=== PATIENT | female | born 1995 | race Caucasian/White ===

== ENCOUNTER 2023-06-09 08:16 | Outpatient (CLI) | payer OTHER, SELFPAY ==
--- NOTE | ~2023-06-09 | US_ITS ---
EXAMINATION: US OB transvaginal DATE: 06/09/2023 08:46 INDICATION: Assess viability TECHNIQUE: Real-time transvaginal obstetric ultrasound. FINDINGS: No prior studies for comparison. The uterus measures 8.1 x 4.1 x 5.1 cm. There is an intrauterine gestational sac, with pole melania ntified. The crown rump length measures 0.94 cm, which correlates with a estimated gestational age o f 7 weeks 0 days. heart tones are identified measuring 132 bpm. There are bilateral ovarian c ysts, largest on the right measuring 4.2 cm. IMPRESSION: 1. SL IUP with an EGA of 7 weeks, 0 days (EDC by current ultrasound of 01/26/2024). 2: Bilateral simple ovarian cysts, largest on the right ovary measuring 4.2 cm. Reviewed, dictated and finalized at location B. ENTION PLANNER IMPRESSION: 1. SL IUP with an EGA of 7 weeks, 0 days (EDC by current ultrasound of ). 2: Bilateral simple ovarian cysts, largest on the right ovary measuring 4.2 cm .
== END 2023-06-09 08:17 ==
LOC: MICIMG 08:20
PROVIDERS: PCP Obstetrics & Gynecology Gynecology; Visit Provider Obstetrics & Gynecology Gynecology
DX: N83.292 Other ovarian cyst, left side (principal); N83.291 Other ovarian cyst, right side; Z3A.01 Less than 8 weeks gestation of pregnancy; O09.811 Supervision of pregnancy resulting from assisted reproductive technology, first trimester
CPT/HCPCS: 76817

== ENCOUNTER 2024-01-03 09:45 | Observation (INO) | payer OTHER, SELFPAY ==
[2024-01-03] VITALS (9 sets, daily range): BP systolic 116–150; BP diastolic 66–136; PULSE 59–116; BMI 40.2
--- NOTE | ~2024-01-03 | US_ITS ---
EXAMINATION: US venous doppler LE RT DATE: 01/03/2024 11:29 INDICATION: Right lower limb pain and swelling TECHNIQUE: Grayscale ultrasound images without and with compression and Doppler ultrasound images of the right lower extremity veins were obtained. COMPARISON: None. FINDINGS: The visualized portions of right common femoral vein, profunda (deep) femoral vein, femoral vein, pop liteal vein, posterior tibial veins, peroneal veins, gastrocnemius vein and greater saphenous vein ou tflow are patent. IMPRESSION: 1. No deep venous thrombosis in the right lower limb. Reviewed, dictated and finalized at location B.
--- NOTE | 2024-01-03 12:04 | PC.NURSE ---
1203: RN phoned CNM to inform her of ultrasound results, contraction pattern, vital signs, and category 1 tracing. Orders to discharge patient home with instructions on when to return to the hospital and instructions to rest, hydrate, and elevate her leg.
--- NOTE | 2024-01-03 12:12 | OBADM ---
This patient, Martha Duarte, admitted to the OB room OB Post 115 for observation. Patient/family oriented to hospital policies and general routines including ID bracelet, bed and alarms, visiting hours, pain management, procedures, bathroom and other care routines, personal items, smoking policy, room service/diet, and visiting hours. Patient/Family are encouraged to report perceived risks to care and to ask questions if they do not understand what they are told or what they should do.
--- NOTE | 2024-01-03 12:32 | PC.NURSE ---
1104: RN phoned CNM to inform her of patient's complaint of her right foot hurting. CNM aware that RN noted pitting edema on her right foot and the foot is sore to the touch but is an abnormal color or temperature. RN informed CNM of vital signs and FHT tracing. Orders to get lower extremity Doppler on the patient to rule out a DVT.
--- NOTE | 2024-01-12 11:14 | PM.OBTRLD ---
OB - Triage/Final Diagnosis Visit Information Date of evaluation: 01/03/24 Reason for evaluation: other (r/o DVT) Comments/Additional reasons for admission: I have assessed the risk for this patient, Martha Duarte, and determined that she would benefit from observation care. Evaluation Comments: Pt evaluated on unit by RN. Plan of care discussed with CNM. FHTs reassuring. VSS. No evidence of active labor or ROM. No evidence of DVT. Pt discharged home.
== END 2024-01-03 12:15 ==
PROVIDERS: Admitting Provider Obstetrics & Gynecology Gynecology; Visit Provider Obstetrics & Gynecology Gynecology
DX: O26.893 Other specified pregnancy related conditions, third trimester (principal); M79.89 Other specified soft tissue disorders; M79.604 Pain in right leg; Z3A.36 36 weeks gestation of pregnancy
CPT/HCPCS: 59025; 93971; G0378; G0379

== ENCOUNTER 2024-01-20 07:18 | Outpatient (RCR) | payer OTHER, SELFPAY ==
[2024-01-20 07:23] VITALS: BP 141/74; PULSE 67
== END 2024-02-22 13:31 | disposition home or self-care (01) ==
LOC: ANHOBOP 07:18
PROVIDERS: PCP Obstetrics & Gynecology Gynecology; Visit Provider Obstetrics & Gynecology Gynecology
DX: O36.8190 Decreased fetal movements, unspecified trimester, not applicable or unspecified (principal); Z3A.38 38 weeks gestation of pregnancy
CPT/HCPCS: 59025

== ENCOUNTER 2024-01-24 05:00 | Inpatient (IN) | payer OTHER, SELFPAY ==
[2024-01-24] VITALS (220 sets, daily range): BP systolic 111–170; BP diastolic 58–140; PULSE 52–161; TEMP 36.1–36.9; O2SAT 74–100; BMI 39.5
[2024-01-24 05:39] LABS: Basophils Percent Auto 0.4 % (0.2-1.2); Eosinophils Absolute Auto 0.2 K/mm3 (0-0.3); Eosinophils Percent Auto 2.3 % (0-4.4); Hematocrit 34.7 % (37.0-47.0); Hemoglobin 11.6 g/dL (12.0-15.0); Immature Granulocyte Absolute 0.07 K/mm3 (0.00-0.031); Immature Granulocyte Percent A 0.7 % (0-0.5); Lymphocytes Absolute Auto 2.37 K/mm3 (0.9-3.2); Lymphocytes Percent Auto 25.2 % (18.3-44.2); Mean Corpuscular HGB Conc 33.4 g/dl (32-36); Mean Corpuscular Hemoglobin 32.5 pg (26-34); Mean Corpuscular Volume 97.2 fl (80-100); Mean Platelet Volume 10.2 fl (7.4-10.4); Monocytes Absolute Auto 0.4 K/mm3 (0.1-0.6); Monocytes Percent Auto 4.5 % (2.6-8.5); Neutrophils Absolute Auto 6.3 K/mm3 (1.3-6.7); Neutrophils Percent Auto 66.9 % (45.5-73.1); Platelet Count Result 191 k/mm3 (150-375); Red Blood Count 3.57 M/mm3 (4.2-5.4); Red Cell Distribution Width 13.8 % (11.5-14.5); White Blood Count 9.4 K/mm3 (4.5-10.0)
--- NOTE | 2024-01-24 05:44 | LDADM ---
This patient, Martha Duarte, was admitted to Labor/Delivery/Recovery 105 on 01/24/24 at 05:00. Plans for labor, pain management and were discussed with patient. Patient/family oriented to hospital policies and general routines including ID bracelet, bed and alarms, visiting hours, pain management, procedures, bathroom and other care routines, personal items, smoking policy, room service/diet and guest tray routines, security routines, and visiting hours. Patient/Family are encouraged to report perceived risks to care and to ask questions if they do not understand what they are told or what they should do. See OBIX for further documentation.
[2024-01-24] MEDS: LACTATED RINGERS 1,000 ML 125 ML IV CONT ×3 (05:45→14:46)
[2024-01-24] MEDS: OXYTOCIN 30 UNITS/NS 500 ML 30 UNITS/500 ML BAG 6 UNITS IV CONT (06:13)
[2024-01-24 06:27] LABS: HIV 1/2 Ab P24 Ag Result Negative (Negative)
--- NOTE | 2024-01-24 07:41 | WPDOBADMIT ---
Obstetrics - Admit Note Admission Note: record reviewed. No pertinent additions to the history and/or any subsequent changes in the physical findings that are not consistent with the expected course of the were found. Additions to the history and/or subsequent changes in the physical findings follow. Pt presents for elective IOL at term.
--- NOTE | 2024-01-24 07:42 | PM.OBPNLAB ---
Pain Control Date/time seen: 01/24/24 07:25 Pain control: tolerating well Comments: feeling some cramping/back pain Pelvic Exam Dilation (cm): 2 Effacement (%): 60 station: -3 Amniotic membrane status: Intact Contractions Monitor mode: External Contraction pattern: Irregular Status status: Category l Assessment and Plan Pitocin rate (mU/min): 12 Assessment: induction ongoing Comments: CNM to bedside. Discussed plan of care and option for amniotomy. Discussed risks, benefits, and expectations of breaking water. Patient is agreeable. Amniotomy performed and there was a small return of clear amniotic fluid. Patient tolerated procedure well. Pitocin decreased to 6 ml/hr. Anticipate vaginal . Dr. Elise updated.
--- NOTE | 2024-01-24 09:34 | WPDANESEPP ---
Anes - Eval Pre Procedure Procedure: labor epidural Date/Time: 01/24/24 09:34 Surgeon: marissa Preop Diagnosis: Pain during labor Pre Op Diagnosis: IOL Patient Data Age: 28 Gender: F Height: 1.73 m Weight: 118 kg Last Vital Signs Temp 36.6 C 01/24/24 08:00 Pulse 73 01/24/24 09:31 BP 132/91 H 01/24/24 09:31 O2 Del Method Room Air 01/24/24 06:28 Allergies Allergy/AdvReac Type Severity Reaction Status Date / Time No Known Allergies Allergy Verified 01/12/24 12:34 Laboratory Tests 01/24/24 05:26 WBC 9.4 K/mm3 (4.5-10.0) RBC 3.57 L M/mm3 (4.2-5.4) Hgb 11.6 L g/dL (12.0-15.0) Hct 34.7 L % (37.0-47.0) MCV 97.2 fl (80-100) MCH 32.5 pg (26-34) MCHC 33.4 g/dl (32-36) RDW 13.8 % (11.5-14.5) Plt Count 191 k/mm3 (150-375) MPV 10.2 fl (7.4-10.4) Immature Gran % (Auto) 0.7 H % (0-0.5) Neut % (Auto) 66.9 % (45.5-73.1) Lymph % (Auto) 25.2 % (18.3-44.2) [place] % (Auto) 4.5 % (2.6-8.5) Eos % (Auto) 2.3 % (0-4.4) Baso % (Auto) 0.4 % (0.2-1.2) Lymph # (Auto) 2.37 K/mm3 (0.9-3.2) [place] # (Auto) 0.4 K/mm3 (0.1-0.6) Eos # (Auto) 0.2 K/mm3 (0-0.3) Baso # (Auto) 0.0 K/mm3 (0.0-0.1) Abs Immat Gran (auto) 0.07 H K/mm3 (0.00-0.031) Absolute Neuts (auto) 6.3 K/mm3 (1.3-6.7) Absolute Nucleated RBC 0.000 K/mm3 (0.0-0.012) Nucleated RBC % 0.0 % (0.0-0.2) RPR Pending HIV 1&2 Ab/P24 Ag 4thGn Negative (Negative) Blood Type B Positive Antibody Screen Negative Patient hx anesthesia problems: none Family hx anesthesia problems: none Results Review: All pre-operative results and documents have been reviewed as part of the pre-operative evaluation. [facility] Family History Family History Grandparent Heart disease Lung cancer Pancreatic cancer Colon cancer Father Neuropathy Social History Social History Smoking status: Never smoker Second hand tobacco smoke exposure: No Substance use: never Do You Feel Safe in your Home?: Yes Lack of Transportation: No Lack of Food: Never True Current Housing: I Have Housing Concerned About Future Housing: No Difficulty Paying Gas/Electric Bills: No Difficulty Paying for Meds: No Currently Unemployed: No Education: Bachelor's Degree Difficulty w/ Childcare or Family Care: No Spiritual care concerns: No Exam Day of Procedure 01/24/24 09:34 Patient weight: obese Heart: regular rate and rhythm Lungs: normal air movement Airway: Mallampati scale class II Neurological: alert and oriented
[2024-01-24 11:25] LABS: Rapid Plasma Reagin Non-Reactive (NonReactive)
--- NOTE | 2024-01-24 13:11 | PM.OBPNLAB ---
Pain Control Date/time seen: 01/24/24 13:11 Spoke with RN on telephone Pain control: tolerating well and epidural Contractions Monitor mode: Internal Contraction pattern: Irregular Status status: Category l Assessment and Plan Assessment: induction ongoing Plan: continuous present management Comments: FHTs Cat 1. Continue pitocin as needed to achieve adequate contraction pattern.
[2024-01-24] MEDS: ONDANSETRON INJ 4 MG/2 ML VIAL IV PUSH (17:06)
--- NOTE | 2024-01-24 17:38 | PM.OBPNLAB ---
Pain Control Date/time seen: 01/24/24 17:38 Pain control: epidural Pelvic Exam Dilation (cm): 9 Effacement (%): 100 station: 0 Amniotic membrane status: Ruptured Comments: per RN exam Contractions Monitor mode: External Contraction frequency: 2 (2-3.5) Contraction pattern: Regular Contraction intensity: Strong/Firm Status status: Category l Assessment and Plan Pitocin rate (mU/min): 7 Assessment: active labor Plan: continuous present management
--- NOTE | 2024-01-24 17:40 | PM.OBPRVD ---
OB - Vaginal Delivery Note Procedure Delivery date: 01/24/24 Induction method: Per Pitocin Protocol Delivery augmentation: Rupture of Membranes Delivery monitor: External FHT and External Uterine Route of delivery: Episiotomy description: None Laceration Description: Perineal - 2nd Degree and Labial Delivery repair: vicryl Specimen: No Quantitative Blood Loss (ml): 400 Anesthesia type: Epidural Disposition: Floor Complications: No immediate complications Narrative: Martha arrived for elective Induction of labor at term. She received Pitocin and amniotomy. Her cervix made steady change to complete dilation and she pushed very well with contractions. She delivered the head and there was excellent restitution observed. There was easy delivery of both anterior and posterior shoulders followed by the remainder of the infant. The was placed on the maternal abdomen and dried and stimulated by the nursery staff. After 1 minute of life, the cord was doubly clamped and cut. Cord blood, cord gases, and cord segment were obtained. The placenta delivered spontaneously it was examined found to be intact with marginal cord insertion noted. A second-degree laceration was repaired in usual fashion. Vaginal bleeding was moderate at this point. A straight catheter was inserted into the urethra using sterile technique and approximately 400 mL of clear yellow urine was returned. At this time, the vaginal bleeding slowed down to small. A superficial left labial laceration was noted to have continuous oozing and was repaired using 4-0 Vicryl on an FSH suture. After this there was excellent hemostasis. Uterine tone remained good. Of delivery counts correct. Mother and baby skin to skin in the delivery room [place] Baby Date of : 01/24/24 Time of : 20:51 Weeks of gestation at delivery: 39 gender: Male Weight (pounds): 0 (weight unavailable at this time.) presentation: vertex position: Left Occiput Anterior Placenta delivery description: Spontaneous and Other (marginal cord insertion) Cord Vessel Description: 3 Vessels and Delayed Cord Clamping score one minute: 9 score five minutes: 9
--- NOTE | 2024-01-24 17:41 | PM.OBDSVD ---
DS: Admitting Diagnosis Discharge Date 01/26/24 Admitting Diagnosis 28 y.o. at 39 weeks PCOS concieved using Femara HSV1 Hx Lap Luana in 2017 Fetus with EIF on Liver (Stable on US) DS: Discharge Diagnosis Discharge Diagnosis (1) (normal spontaneous vaginal delivery): Code(s): O80 - Encounter for full-term uncomplicated delivery Status: Acute (2) Mother currently breastfeeds: Status: Acute OB - DS: Summary Hospital Course Hospital Course: Uncomplicated OB Procedures : Ultrasound OB Procedures Intrapartum: Spontaneous Vag Delivery OB Procedures: : None Peripartum Data Infant Delivery Method: Natural Vaginal Laceration Description: Perineal - 2nd Degree and Labial Episiotomy description: None complications: none Status at Discharge Functional status at discharge: independent ambulation Overall status at discharge: patient is progressing back to baseline Time Spent with Patient Time attestation: Total time spent providing and/or coordinating discharge services: Exam Narrative: Alert and oriented. Mood is pleasant and cooperative. Perineum with minimal edema. Fundus firm and below umbilicus. Const: General: cooperative, healthy appearing, no acute distress and alert Orientation/consciousness: patient oriented x3 Limitations: no limitations Resp: Effort & Inspection: normal respiratory effort and able to speak in complete sentences Auscultation: clear to auscultation bilaterally Cardio: Rate: regular rate GI: Inspection: normal to inspection Auscultation: normal bowel sounds : General: Yes bladder normal to palpation External Female Exam: other (lochia WNL) Bimanual exam- vagina & uterus: bladder normal to palpation Other: Fundus firm and below U Skin: General skin exam: normal color and no rashes or lesions noted Neuro: General: patient oriented x3 and moves all extremities Cognition (Neuro): normal cognition Extrem: General: normal to inspection and no calf tenderness Psych: Appearance: grossly normal Mental Status: mental status grossly normal Affect: normal affect Thought process: Normal thought process present DS: Data Data Completed and Pending Labs on day of discharge: Labs from last 24 hours 01/24/24 05:26 WBC 9.4 RBC 3.57 L Hgb 11.6 L Hct 34.7 L MCV 97.2 MCH 32.5 MCHC 33.4 RDW 13.8 Plt Count 191 MPV 10.2 Immature Gran % (Auto) 0.7 H Neut % (Auto) 66.9 Lymph % (Auto) 25.2 [place] % (Auto) 4.5 Eos % (Auto) 2.3 Baso % (Auto) 0.4 Lymph # (Auto) 2.37 [place] # (Auto) 0.4 Eos # (Auto) 0.2 Baso # (Auto) 0.0 Abs Immat Gran (auto) 0.07 H Absolute Neuts (auto) 6.3 Absolute Nucleated RBC 0.000 Nucleated RBC % 0.0 RPR Non-reactive HIV 1&2 Ab/P24 Ag 4thGn Negative Blood Type B Positive Antibody Screen Negative Discharge Plan Discharge Attending physician on discharge: Deidre Elise Discharging Clinician: Diane Belcher Anticipated Discharge Date/Time: 01/26/24 10:00 Patient Disposition: Home, Self-Care Activity: may drive after 2 weeks and pelvic rest Diet: as tolerated Wound Care Instructions: follow printed instructions Discharge Instructions: Continue taking your vitamin and any other supplements as previously directed (Examples: Iron, Vitamin D). You may take Tylenol 1000mg over the counter every 6 hours as needed for pain. Do not exceed 4000mg of Tylenol daily. You may continue using tucks pads and dermoplast spray if needed for a few more days. Depression Notify provider for signs or symptoms. These may include- Feelings: Feeling anxious, angry, hopeless, guilt, or loss of interest/pleasure in activities you normally enjoy. Mood swings or panic attacks. General: Extreme fatigue, loss of your appetite, feeling restless. Crying excessively, irritability, insomnia Psycholo
[2024-01-24] MEDS: fentaNYL CITRATE INJ (*CRX) 100 MCG/2 ML VIAL 50 MCG IV PUSH (21:15)
[2024-01-24] MEDS: OXYTOCIN 30 UNITS/NS 500 ML 30 UNITS/500 ML BAG 125 UNITS IV CONT (21:18)
[2024-01-24] MEDS: WITCH HAZEL 40 PADS 1 PAD TOPICAL (23:21)
[2024-01-24] MEDS: BENZOCAINE 20% AER SPR (*SP) 56 GM CAN 1 SPRAY TOPICAL (23:22)
[2024-01-24] MEDS: IBUPROFEN 600 MG TABLET PO (23:22)
--- NOTE | 2024-01-24 23:57 | OBPPTRN ---
Patient transferred to post room #284 via wheelchair. Support person present. Oriented to unit, room, information board, rooming in, admission packet and security measures. Patient verbalizes understanding.
[2024-01-25] VITALS: BP 138/79; PULSE 74; RESP 18; TEMP 36.1; O2SAT 97
[2024-01-25 05:17] VITALS: BP 137/84; PULSE 74; RESP 18; TEMP 36; O2SAT 98
[2024-01-25] MEDS: IBUPROFEN 600 MG TABLET PO ×3 (05:29→19:14)
[2024-01-25 05:44] LABS: Hematocrit 31.9 % (37.0-47.0); Hemoglobin 10.6 g/dL (12.0-15.0)
[2024-01-25 07:35] VITALS: BP 132/83; PULSE 71; RESP 16; TEMP 36.8; O2SAT 100
--- NOTE | 2024-01-25 07:39 | PM.OBPNVD ---
OB - PN: Subj Subjective Date/time seen: 01/25/24 07:39 Interval history: Doing well. Urinating without difficulty. Denies passing any large clots. Denies dizziness with ambulating. Tolerating po food and fluids. Bonding with . Infant latched once but has been bottle feeding. Patient comments: pain well controlled baby status: doing well [place] feeding status: pumping and bottle feeding OB - PN: Obj Data Labs 01/25/24 05:39 Labs: Laboratory Results - last 24 hr 01/24/24 01/25/24 05:26 05:39 Hgb 10.6 L Hct 31.9 L RPR Non-reactive OB - PN A/P Time Spent With Patient Time: Total time spent is greater than 50% in coordination of care (as documented) at patient's floor/unit and/or counseling patient: Review of Systems Review of Systems: All systems reviewed & are unremarkable except as noted in HPI and below Exam Narrative: Alert and oriented. Mood is pleasant and cooperative. Perineum with minimal edema. Fundus firm and below umbilicus. Const: General: cooperative, healthy appearing, no acute distress and alert Orientation/consciousness: patient oriented x3 Limitations: no limitations Resp: Effort & Inspection: normal respiratory effort and able to speak in complete sentences Cardio: Rate: regular rate GI: Inspection: normal to inspection Auscultation: normal bowel sounds : General: Yes bladder normal to palpation External Female Exam: other (lochia WNL) Bimanual exam- vagina & uterus: bladder normal to palpation Other: Fundus firm and below U Skin: General skin exam: normal color and no rashes or lesions noted Neuro: General: patient oriented x3 and moves all extremities Cognition (Neuro): normal cognition Extrem: General: normal to inspection and no calf tenderness Psych: Appearance: grossly normal Mental Status: mental status grossly normal Affect: normal affect Thought process: Normal thought process present
[2024-01-25] MEDS: ACETAMINOPHEN 325 MG TABLET 650 MG PO ×2 (09:19→19:13)
[2024-01-25] MEDS: MULTIVIT/MIN/PREN/FOL AC/IRON TABLET 1 TAB PO (09:19)
[2024-01-25] MEDS: DOCUSATE SODIUM 100 MG CAPSULE PO (09:19)
[2024-01-25] MEDS: metFORMIN HCL XR 500 MG TAB.SR.24H PO (09:19)
--- NOTE | 2024-01-25 09:40 | PC.NURSE ---
1105- Received consult from Diane Belcher CNM for . She states patient needs a pump CLAUDETTE. She discussed hand expression with patient. Breast pump provided due to [patient request]. Patient feels like baby is eating from the bottle very well and is feeling like she wants to pump and bottle feed, rather than put baby to breast. Instructions given on cleaning, care, usage, that there should be no pain, pumping schedule for milk production, collection, and storage of human milk. Mother eating breakfast and will call for pump instructions when she is ready. 7043- Patient was assessed for correct placement, flange size (24mm), stimulation for adequate milk production every 3 hours (8 times in 24 hours) 1-2 times at night. Reviewed use of pumped milk and how to mix with a small amount of formula to ensure baby gets all drops. She denies any pain with pumping.?Mother voiced understanding of the education shared along with mom/baby guide. Reported to the Primary RN.
[2024-01-25 12:29] VITALS: BP 143/81; PULSE 72; RESP 16; TEMP 36.9; O2SAT 99
[2024-01-25 19:10] VITALS: BP 154/92; PULSE 91; RESP 18; TEMP 37
[2024-01-25 21:00] VITALS: BP 120/62
[2024-01-26 04:00] VITALS: BP 128/74; PULSE 88; RESP 18; TEMP 36.9
--- NOTE | 2024-01-26 07:40 | P.PNOB_ITS ---
OB - PN: Subj Subjective Date/time seen: 01/26/24 07:25 Interval history: Doing well. Urinating without difficulty. Denies passing any large clots. Denies dizziness with ambulating. Tolerating po food and fluids. Bonding with . Mostly bottle feeding formula. Patient comments: pain well controlled baby status: doing well feeding status: pumping and bottle feeding OB - PN: Obj Data Labs 01/25/24 05:39 OB - PN A/P Assessment and Plan (1) (normal spontaneous vaginal delivery): Code(s): O80 - Encounter for full-term uncomplicated delivery Status: Acute (2) Mother currently breastfeeds: Status: Acute Plan day: 2 Plan: discharge home Time Spent With Patient Time: Total time spent is greater than 50% in coordination of care (as documented) at patient's floor/unit and/or counseling patient: Review of Systems Review of Systems: All systems reviewed & are unremarkable except as noted in HPI and below Exam Narrative: Alert and oriented. Mood is pleasant and cooperative. Perineum with minimal edema. Fundus firm and below umbilicus. Const: General: cooperative, healthy appearing, no acute distress and alert Orientation/consciousness: patient oriented x3 Limitations: no limitations Resp: Effort & Inspection: normal respiratory effort and able to speak in complete sentences Auscultation: clear to auscultation bilaterally Cardio: Rate: regular rate GI: Inspection: normal to inspection Auscultation: normal bowel sounds : General: Yes bladder normal to palpation External Female Exam: other (lochia WNL) Bimanual exam- vagina & uterus: bladder normal to palpation Other: Fundus firm and below U Skin: General skin exam: normal color and no rashes or lesions noted Neuro: General: patient oriented x3 and moves all extremities Cognition (Neuro): normal cognition Extrem: General: normal to inspection and no calf tenderness Psych: Appearance: grossly normal Mental Status: mental status grossly n ormal Affect: normal affect Thought process: Normal thought process present
[2024-01-26 08:08] VITALS: BP 139/83; PULSE 68; RESP 20; TEMP 36.7; O2SAT 100
[2024-01-26] MEDS: metFORMIN HCL XR 500 MG TAB.SR.24H PO (08:31)
[2024-01-26] MEDS: DOCUSATE SODIUM 100 MG CAPSULE PO (08:31)
[2024-01-26] MEDS: IBUPROFEN 600 MG TABLET PO (08:31)
[2024-01-26] MEDS: MULTIVIT/MIN/PREN/FOL AC/IRON TABLET 1 TAB PO (08:31)
[2024-01-26] MEDS: ACETAMINOPHEN 325 MG TABLET 650 MG PO (08:31)
--- NOTE | 2024-01-26 14:41 | PC.NURSE ---
0840 RN provided instructions on cleaning, care, and usage of breast pump, that there should be no pain, pumping schedule for milk production, collection, and storage of human milk. Patient had already been assessed for correct placement, flange size, to pump for comfort and nipple stretching/stimulation for adequate milk production every 3 hours (8 times in 24 hours) 1-2 times at night. Parents are encouraged to record the pumping schedule on the feeding sheet.?Mother voiced understanding of the education shared along with mom/baby guide and the pump measurement, flange fit handout for additional resource information. Reported to the Primary RN.
[2024-01-27 11:08] VITALS: BP 140/86; PULSE 73; RESP 18; TEMP 36.9; O2SAT 99
== END 2024-01-26 10:15 | disposition home or self-care (01) | DRG 806 ==
LOC: ANHLDR 21:51 → ANHOB2 01-25 00:12
PROVIDERS: Advanced Practice Midwife; Admitting Provider Obstetrics & Gynecology Gynecology; PCP Obstetrics & Gynecology Gynecology; Visit Provider Obstetrics & Gynecology Gynecology
DX: O69.89X0 Labor and delivery complicated by other cord complications, not applicable or unspecified (principal); O98.52 Other viral diseases complicating childbirth; Z37.0 Single live birth; Z3A.39 39 weeks gestation of pregnancy; O70.1 Second degree perineal laceration during delivery; B00.9 Herpesviral infection, unspecified
CPT/HCPCS: 36415; 85014; 85018; 85025; 86592; 86703; 86850; 86900; 86901; A9270; G0432; J2405; J2590; J2795; J3010; J7120

== ENCOUNTER 2024-02-02 17:05 | Outpatient (CLI) | payer OTHER, SELFPAY ==
[2024-02-02] VITALS (11 sets, daily range): BP systolic 134–152; BP diastolic 80–95; PULSE 60–79
[2024-02-02 18:15] LABS: Basophils Percent Auto 0.5 % (0.2-1.2); Eosinophils Absolute Auto 0.2 K/mm3 (0-0.3); Eosinophils Percent Auto 2.3 % (0-4.4); Hematocrit 35.2 % (37.0-47.0); Hemoglobin 11.4 g/dL (12.0-15.0); Immature Granulocyte Absolute 0.05 K/mm3 (0.00-0.031); Immature Granulocyte Percent A 0.6 % (0-0.5); Lymphocytes Absolute Auto 2.76 K/mm3 (0.9-3.2); Lymphocytes Percent Auto 33.3 % (18.3-44.2); Mean Corpuscular HGB Conc 32.4 g/dl (32-36); Mean Corpuscular Hemoglobin 32.3 pg (26-34); Mean Corpuscular Volume 99.7 fl (80-100); Mean Platelet Volume 9.3 fl (7.4-10.4); Monocytes Absolute Auto 0.4 K/mm3 (0.1-0.6); Monocytes Percent Auto 4.8 % (2.6-8.5); Neutrophils Absolute Auto 4.9 K/mm3 (1.3-6.7); Neutrophils Percent Auto 58.5 % (45.5-73.1); Platelet Count Result 323 k/mm3 (150-375); Red Blood Count 3.53 M/mm3 (4.2-5.4); Red Cell Distribution Width 13.5 % (11.5-14.5); White Blood Count 8.3 K/mm3 (4.5-10.0)
[2024-02-02 18:28] LABS: Alanine Aminotransferase 28 U/L (6-35); Albumin Level 3.9 g/dL (3.5-5.1); Alkaline Phosphatase 96 U/L (38-126); Anion Gap 10 mmol/L (4-12); Aspartate Amino Transferase 35 U/L (14-36); Bilirubin,Total 0.4 mg/dL (0.2-1.3); Blood Urea Nitrogen 11 mg/dL (7-17); Carbon Dioxide 23 mmol/L (22-30); Chloride 102 mmol/L (98-107); Estimated Glomerular Filt Rate > 60; Glucose 83 mg/dL (65-110); Potassium 4.2 mmol/L (3.4-5.0); Sodium 135 mmol/L (137-145)
--- NOTE | 2024-02-02 18:35 | PC.NURSE ---
Norberto Belcher CNM informed of BP's, headache since last night, pt took 500 mg of Tylenol last night, 600 mg of Motrin at 0200, and 1000 mg of Tylenol at noon today. Discussed lab results. No visual disturbance, epigastric/RUQ pain. Minimal swelling in lower legs. Order received for Fioricet and discharge instructions if headache improves.
[2024-02-02] MEDS: ACETAMINOPHEN/BUTALBITAL/CAFFEINE 325-50-40 MG TABLET (FIORICET) 1 TAB PO (19:18)
--- NOTE | 2024-02-03 08:48 | PM.OBTRLD ---
OB - Triage/Final Diagnosis Visit Information Date of evaluation: 02/02/24 Reason for evaluation: other (Elevated BPs at home. ) Comments/Additional reasons for admission: I have assessed the risk for this patient, Martha Duarte, and determined that she would benefit from observation care. Evaluation Laboratory results: Laboratory Tests 02/02/24 17:45 WBC 8.3 RBC 3.53 L Hgb 11.4 L Hct 35.2 L MCV 99.7 MCH 32.3 MCHC 32.4 RDW 13.5 Plt Count 323 D MPV 9.3 Immature Gran % (Auto) 0.6 H Neut % (Auto) 58.5 Lymph % (Auto) 33.3 [place] % (Auto) 4.8 Eos % (Auto) 2.3 Baso % (Auto) 0.5 Lymph # (Auto) 2.76 [place] # (Auto) 0.4 Eos # (Auto) 0.2 Baso # (Auto) 0.0 Abs Immat Gran (auto) 0.05 H Absolute Neuts (auto) 4.9 Absolute Nucleated RBC 0.000 Nucleated RBC % 0.0 Sodium 135 L Potassium 4.2 Chloride 102 Carbon Dioxide 23 Anion Gap 10 BUN 11 Creatinine 0.70 Estim Creat Clear Calc Not Reportable Estimated GFR > 60 Glucose 83 Uric Acid 4.0 Calcium 9.0 Total Bilirubin 0.4 AST 35 ALT 28 Alkaline Phosphatase 96 Total Protein 7.0 Albumin 3.9 Vital signs: Vital Signs - 24 hr 02/02/24 17:38 02/02/24 17:38 02/02/24 17:38 Pulse Rate 79 79 Blood Pressure 146/88 H Blood Pressure [Left Arm] 146/88 H Oxygen Delivery Room Air 02/02/24 18:00 02/02/24 18:15 02/02/24 18:31 Pulse Rate 69 72 66 Blood Pressure 134/80 137/88 143/80 H Blood Pressure [Left Arm] Oxygen Delivery 02/02/24 18:45 02/02/24 19:00 02/02/24 19:15 Pulse Rate 60 60 61 Blood Pressure 149/90 H 143/88 H 152/89 H Blood Pressure [Left Arm] Oxygen Delivery 02/02/24 19:30 02/02/24 19:45 02/02/24 20:01 Pulse Rate 66 61 64 Blood Pressure 143/95 H 145/89 H 144/85 H Blood Pressure [Left Arm] Oxygen Delivery 02/02/24 20:15 Pulse Rate 60 Blood Pressure 139/84 Blood Pressure [Left Arm] Oxygen Delivery Comments: All BPs normal to mild range. Given Ibuprofen for headache. CBC, CMP, and Uric acid WNL. No evidence of preeclampsia. Plan for pt to check BP daily at home and call office with readings on 02/04/24. Plan for BP check in the office early next week.
== END 2024-02-02 20:35 | disposition home or self-care (01) ==
LOC: ANHOBOP 17:16 → ANHOBPP 17:16
PROVIDERS: Visit Provider Advanced Practice Midwife
DX: O13.9 Gestational [pregnancy-induced] hypertension without significant proteinuria, unspecified trimester (principal); Z3A.00 Weeks of gestation of pregnancy not specified
CPT/HCPCS: 36415; 80053; 84550; 85025; 99199; A9270

== ENCOUNTER 2024-09-25 17:42 | Emergency (ER) | payer OTHER, SELFPAY ==
--- NOTE | 2024-09-25 17:45 | ED.URI ---
HPI - URI/Sore Throat General Chief Complaint: Upper Respiratory Infection Stated Complaint: Cough Time Seen by Provider: 09/25/24 17:44 Source: patient Mode of arrival: ambulatory Limitations: no limitations History of Present Illness HPI Narrative: Martha is a a 28 year old female patient presenting to the clinic today with c/o cough, sinus congestion, and chest congestion x 2 weeks. She reports no known fevers, chills, body aches. Denies any shortness of breath or chest pain currently. She is 6 weeks . Spoke with her OBGYN and was sent here for evaluation. States she went to [facility] clinic on Wednesday and they prescribed her an albuterol inhaler MD elicited complaint: sore throat and nasal congestion Related Data Home Medications ?Medication ?Instructions ?Recorded ?Confirmed ?Last Taken ?Type acetaminophen 500 mg tablet 1,000 mg PO Q6H PRN Headache 02/02/24 09/25/24 02/02/24 12:00 History (Tylenol Extra Strength) Vitamin .Route DAILY 09/25/24 Unknown History albuterol sulfate 90 mcg/actuation 2 puff inhalation PRN shortness of 09/25/24 Unknown History aerosol inhaler breath or wheezing Allergies Allergy/AdvReac Type Severity Reaction Status Date / Time No Known Allergies Allergy Verified 09/25/24 17:48 Review of Systems Review of Systems: Pertinent positives per HPI. Patient denies any fever, chills, rash, headache, visual changes, dizziness,shortness of breath, chest pain, palpitations, nausea, vomiting, diarrhea, constipation, abdominal pain, or any urinary issues. [facility] Family History Family History Grandparent Heart disease Lung cancer Pancreatic cancer Colon cancer Father Neuropathy Social History Social History Smoking status: Never smoker Second hand tobacco smoke exposure: No Substance use: never Do You Feel Safe in your Home?: Yes Lack of Transportation: No Lack of Food: Never True Current Housing: I Have Housing Concerned About Future Housing: No Difficulty Paying Gas/Electric Bills: No Difficulty Paying for Meds: No Currently Unemployed: No Education: Bachelor's Degree Difficulty w/ Childcare or Family Care: No Spiritual care concerns: No Comments At the time of my signature, I reviewed and agree with the nursing past medical, surgical, social, and family history. There is no relevant family history pertinent to the patient complaint. Exam Narrative: General: Well-developed, well nourished, in no apparent distress Head: Normocephalic, atraumatic Eyes: Pupils equally round and reactive to light bilaterally, EOM intact, sclera and conjunctive clear, no discharge, lids normal Ears: TMs intact and clear, ear canals clear, no drainage, grossly hearing normal. Nose: Nares patent, yellow nasal discharge moderate inflammation, n maxillary and frontal sinus tenderness. Mouth: Oral pharynx red without lesions or masses, good dentition, MMM. Postnasal drip, blister-like painful lesions to the upper right lip Neck: Supple, trachea midline, no enlargement of anterior or posterior cervical nodes, no thyroid masses or goiter palpable. Cardio: Regular rate and rhythm, s1 and s2 normal, no murmur appreciated. Resp: Slightly diminished in the bases otherwise clear, no rhonchi, rales, wheezing or rubs Course Course Emergency Course: Portions of this record may have been created with voice recognition software. Level of Care: Express Care Visit Vital Signs Vital signs: Vital signs reviewed MDM - URI/Sore Throat MDM Narrative Medical decision making narrative: At the time of visit patient is resting comfortably on the exam table. Patient appears to be nontoxic. Plan: I suspect patient has rhinosinusitis. Prescription for Augmentin was sent to the pharmacy. Patient is also reporting some cold sores on her lips. He is requesting medication for this. Will send in acyclovir 5% cream. Supportive measures were discussed with the patient and they voiced understanding discharge instructions and agrees to treatment plan. Return precautions reviewed Differential Diagnosis Differential diagnosis: Likely upper respiratory infection, otitis media, sinusitis, viral infection, bronchitis, influenza, pharyngitis and other (COVID) Discharge Plan Discharge Clinical Impression: Acute bacterial rhinosinusitis, Cold sore Patient Disposition: Home, Self-Care Condition: Stable Instructions: Antibiotic Form, Rhinosinusitis (ED) Additional Instructions: Take prescription medications only as prescribed-Augmentin and acyclovir topical cream Increase fluids and stay well hydrated Tylenol for pain/fever Flonase and OTC antihistamines such as Claritin or Zyrtec as directed Vicks vapor rub to open sinuses Sinus rinses for congestion Cepacol spray, cough drops, throat lozenges, warm tea with honey/lemon, gargle salt water to soothe throat BRAT diet for diarrhea Clear liquids x 24 hours then advance as tolerated for nausea/vomiting Go to the ED if you develop a worsening in your condition- high fever not controlled by Tylenol or Motrin, dehydration, weakness, lethargy, shortness of breath, or chest pain. Follow up with your PCP in 3-5 days if symptoms persist. Approved Medications for Patients Cold and Flu Symptoms --Tylenol (regular or extra Strength) Fever (call if over 101?)--Tylenol (regular or extra Strength) Nasal Drainage/Head Congestion--Chlor-Trimeton, Sudafed, Tavist,Tylenol Sinus Cough--Robitussin, Delsym, Mucinex Sore Throat--Chloraseptic, Cepacol lozenges Allergy Symptoms--Benadryl, Zyrtec, Zyrtec D, Claritin, Claritin D Nausea--Emetrol, Vitamin B6 Tablets, Lupe, Lupe Tea, Preggie Pops, B- Suckers Constipation--Milk of Magnesia, Metamucil, Fiberall, Konsyl, Colace (Docusate Sodium) Diarrhea--Imodium, Kaopectate, Follow BRAT diet: bananas, rice, applesauce, tea/toast Heartburn--Maalox, Mylanta, TUMS, Prilosec OTC, Zantac, Tagament, Prevacid, Pepcid Hemorrhoids--Tucks Pads, Anusol, Preparation H, warm sitz baths Patient Language: Mongolian Prescriptions: New amoxicillin-pot clavulanate 875-125 mg tablet 1 tablet PO Q12H 10 Days Qty: 20 0RF acyclovir 5 % cream See Rx Instructions .ROUTE .COMPLEX 7 Days Qty: 5 0RF Rx Instructions: 1 applic topically ;apply 6 times daily x 7 days. No Action Vitamin .Route DAILY albuterol sulfate 90 mcg/actuation HFA aerosol inhaler 2 puff INHALATION PRN (Reason: shortness of breath or wheezing) ibuprofen 600 mg tablet 600 mg PO Q6H PRN (Reason: pain) Qty: 30 0RF acetaminophen [Tylenol Extra Strength] 500 mg Tablet 1,000 mg PO Q6H PRN (Reason: Headache) Follow-up/Referrals: PHYSICIAN,LUNG GUN OPERATOR [Primary Care Provider] - Time of Disposition: 17:56 Quality NIHSS Nursing Documentation ED NIHSS nursing documentation: reviewed/agree
[2024-09-25 17:50] VITALS: BP 130/80; PULSE 88; RESP 18; TEMP 36.4; O2SAT 100
== END 2024-09-25 18:10 | disposition home or self-care (01) ==
PROVIDERS: Emergency Provider Nurse Practitioner Family
DX: J01.90 Acute sinusitis, unspecified (principal); B00.1 Herpesviral vesicular dermatitis
CPT/HCPCS: 99213; G0463

== ENCOUNTER 2024-09-28 15:18 | Outpatient (CLI) | payer OTHER, SELFPAY ==
--- NOTE | ~2024-09-28 | US_ITS ---
EXAMINATION: US OB transvaginal DATE: 09/28/2024 15:48 INDICATION: Evaluate viability TECHNIQUE: Real-time transvaginal obstetric ultrasound. FINDINGS: No prior studies for comparison. The uterus measures 8.1 x 4.1 x 5.1 cm. There is an intrauterine gestational sac, with pole melania ntified. The crown rump length measures 0.26 cm, which correlates with a estimated gestational age o f 5 weeks 6 days. heart tones are identified measuring 131 bpm. There are bilateral ovarian c yst measuring 4.2 cm on the right and 5 cm on the left. IMPRESSION: 1. SL IUP with an EGA of 5 weeks, days (EDC by current ultrasound of 05/25/2025). 2: Bilateral ovarian cysts largest in the right ovary measuring 4.2 cm. Reviewed, dictated and finalized at location A. IMPRESSION: 1. SL IUP with an EGA of 5 weeks, days (EDC by current ultrasound of 05/25/2025 ). 2: Bilateral ovarian cysts largest in the right ovary measuring 4.2 cm.
== END 2024-09-28 15:19 | disposition home or self-care (01) ==
PROVIDERS: PCP Obstetrics & Gynecology Gynecology; Visit Provider Obstetrics & Gynecology Gynecology
DX: O36.80X0 Pregnancy with inconclusive fetal viability, not applicable or unspecified (principal); O34.80 Maternal care for other abnormalities of pelvic organs, unspecified trimester; N83.292 Other ovarian cyst, left side; N83.291 Other ovarian cyst, right side; Z3A.00 Weeks of gestation of pregnancy not specified
CPT/HCPCS: 76817

== ENCOUNTER 2024-10-13 14:25 | Outpatient (CLI) | payer OTHER, SELFPAY ==
--- NOTE | ~2024-10-13 | US_ITS ---
Pelvic ultrasound. Clinical History: First trimester , establish dates and viability Technique: Realtime transvaginal scanning of the pelvis was performed. Color flow Doppler and Doppler spectral analysis were performed. Findings: The uterus is retroverted, and contains an intrauterine gestational sac. With pole an d yolk sac are present. Pickering-rump length of 1.67 m corresponds to an estimated gestational age of 8 weeks 0 days. heart rate is 161 bpm. The right ovary measures 2.1 x 1.9 x 1.3 cm. No significant right ovarian or adnexal mass is seen. The left ovary measures 2.9 x 2.6 x 2.7 cm. Left ovarian corpus luteal cyst is seen. There is no evidence of free fluid in the cul de sac. Impression: Live intrauterine gestation, with estimated gestational age of 8 weeks 0 days. heart rate is 16 1 bpm. Sonographic JOSH is 05/25/2025. Reviewed, dictated and finalized at location . Impression: Live intrauterine gestation, with estimated gestational age of 8 weeks 0 days. heart rate is 161 bpm. Sonographic JOSH is 05/25/2025.
== END 2024-10-13 14:26 | disposition home or self-care (01) ==
LOC: MICIMG 14:27
PROVIDERS: PCP Obstetrics & Gynecology Gynecology; Visit Provider Obstetrics & Gynecology Gynecology
DX: Z36.87 Encounter for antenatal screening for uncertain dates (principal)
CPT/HCPCS: 76817

== ENCOUNTER 2024-10-26 09:18 | Outpatient (CLI) | payer OTHER, SELFPAY ==
--- NOTE | ~2024-10-26 | US_ITS ---
US breast RT complete INDICATION: Bloody nipple discharge TECHNIQUE: Dedicated complete right breast ultrasound including all 4 quadrants in the subareolar loc ation COMPARISON: No prior studies for comparison. FINDINGS: The right breast is/are composed of normal heterogeneous echotexture without focal solid or cystic mass. IMPRESSION: 1: Normal right breast ultrasound. Recommendation: Follow-up clinical management for nipple discharge recommended. Consider correlation with MRI of the breast with contrast. BI-RADS CATEGORY 1 - NEGATIVE Reviewed, dictated and finalized at location A.
== END 2024-10-26 09:19 | disposition home or self-care (01) ==
LOC: MICIMG 09:19
PROVIDERS: PCP Obstetrics & Gynecology Gynecology; Visit Provider Obstetrics & Gynecology Gynecology
DX: Z34.91 Encounter for supervision of normal pregnancy, unspecified, first trimester (principal); N64.59 Other signs and symptoms in breast
CPT/HCPCS: 76641

== ENCOUNTER 2025-05-02 10:31 | Observation (INO) | payer OTHER, SELFPAY ==
[2025-05-02 11:14] LABS: Hematocrit 32.7 % (37.0-47.0); Hemoglobin 11.2 g/dL (12.0-15.0); Immature Granulocyte Percent A 1.0 % (0-0.5); Lymphocytes Absolute Auto 2.21 K/mm3 (0.9-3.2); Mean Corpuscular HGB Conc 34.3 g/dl (32-36); Mean Corpuscular Hemoglobin 32.9 pg (26-34); Mean Corpuscular Volume 96.2 fl (80-100); Nucleated Red Blood Cells Absolute Auto 0.000 K/mm3 (0.0-0.012); Nucleated Red Blood Cells Perc 0.0 % (0.0-0.2); Platelet Count Result 207 k/mm3 (150-375); Red Blood Count 3.40 M/mm3 (4.2-5.4); White Blood Count 9.8 K/mm3 (4.5-10.0)
[2025-05-02] MEDS: ONDANSETRON INJ 4 MG/2 ML VIAL IV PUSH (11:15)
[2025-05-02] MEDS: DEXTROSE 5%/0.45% SOD CHL 1,000 ML 999 ML IV CONT (11:16)
[2025-05-02 11:19] VITALS: BP 144/84; PULSE 64
[2025-05-02 11:31] VITALS: BP 136/84; PULSE 66
[2025-05-02 11:34] LABS: Alanine Aminotransferase 16 U/L (6-35); Albumin Level 3.3 g/dL (3.5-5.1); Alkaline Phosphatase 121 U/L (38-126); Anion Gap 7 mmol/L (4-12); Aspartate Amino Transferase 30 U/L (14-36); Bilirubin,Total 0.4 mg/dL (0.2-1.3); Blood Urea Nitrogen 4 mg/dL (7-17); Calcium 8.4 mg/dL (8.4-10.2); Carbon Dioxide 21 mmol/L (22-30); Chloride 108 mmol/L (98-107); Estimated Glomerular Filt Rate > 60; Glucose 70 mg/dL (65-110); Potassium 3.5 mmol/L (3.4-5.0); Sodium 136 mmol/L (137-145); Total Protein 6.4 g/dL (6.3-8.2)
--- OUTSIDE RECORDS SUMMARY | 2025-05-02 11:59 | XMS_ITS | Clinical Summary ---
Author Organization [facility] Address [address] [place] [address] Care Team Providers Care Theoretical Physicist Name Role Phone Unknown, Notinfile Primary Care Provider Unavail able Allergies No known active allergies Medications metFORMIN XR (GLUCOPHAGE XR) 500 mg 24 hr tablet Take 1 tablet (500 mg total) by mouth 2 (two) times a day 4 Active valACYclovir (VALTREX) 500 mg tablet Take 1 tablet (500 mg total) by mouth 2 (two) times a day 4 Active albuterol HFA (PROVENTIL HFA,VENTOLIN HFA,PROAIR HFA) 90 mcg/actuation inhalerIndicati ons:Acute cough Inhale 2 puffs every 6 (six) hours as needed for wheezing for up to 7 days 1 each 5 Active Additional Information Patient not taking.Reported on 11/26/2024 ergocalciferol (VITAMIN D) 50,000 unit capsule TAKE 1 CAPSULE ONCE A WEEK WITH A MEAL 5 Active aspirin 81 mg tablet Take 81 mg by mouth 5 Active busPIRone (BUSPAR) 15 mg tablet Take 1 tablet (15 mg total) by mouth 2 (two) times a day 2 Active ferrous sulfate 325 mg (65 mg of elemental iron) tablet Take 1 tablet (325 mg total) by mouth 5 Active amoxicillin 500 mg tablet/capsuleI ndications:Stre p throat Take 1 tablet/capsule (500 mg total) by mouth 2 (two) times a day for 10 days 20 tablet/capsu le 09/04/13/20 25 Active Problems Estimated Date of Delivery Comme nts Yes 05/21/2025 No known active problems Encounters Date Type Department Care Team Description 04/03/2025 4:15 PM CDT Office Visit [facility] at [address] [phone] Evy Cadet NP Strep throat (Primary Dx); COVID-19 from Last 3 Months Social History Tobacco Use Types Packs/Day Years Used Date Smoking Tobacco: Never Assessed Estimated Date of Delivery Comme nts Yes 05/21/2025 Sex and Gender Information Value Date Recorded Sex Assigned at Not on file 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 Sex 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 Gender Identity Not on file Sexual Orientation Not on file Obstetrics History Para Term AB IAB SAB Ectopic Multiple Livin g Live Births 2 Date Outcome GA Total Labor Labor/2nd/3rd Weight Sex Type Anes PTL Patricia A1 A5 Name Clin Current Last Filed Vital Signs Vital Sign Reading Time Taken Comments Blood Pressure 116/72 04/03/2025 4:15 PM CDT Pulse 74 04/03/2025 4:15 PM CDT Temperature 36.6 C (97.9 F) 04/03/2025 4:15 PM CDT Respiratory Rate 20 04/03/2025 4:15 PM CDT Oxygen Saturation 99% 04/03/2025 4:15 PM CDT Inhaled Oxygen Concentration - - Weight 109.8 kg (242 lb) 04/03/2025 4:15 PM CDT Height 172.7 cm (5' 8) 09/22/2024 12:30 PM CDT Body Mass Index 36.8 09/22/2024 12:30 PM CDT Plan of Treatment Health Maintenance Due Date Last Done Comments Cervical Cancer Screening 1993 Depression Screening 1993 Hepatitis C Screening 1993 Varicella Vaccines (1 of 2 - 13+ 2-dose series) 2006 Hepatitis B Screening 11/05/2011 Regular Well Visit/Exam 18-64 11/05/2011 DTaP/Tdap/Td Vaccine (1 - Tdap) 07/06/2015 07/05/2015 HPV Vaccines (1 - 3-dose SCD M series) 2020 Covid-19 Vaccine (2024-2 6 season) 2025 08/23/2020, 07/25/2020 Influenza Vaccine (#1) 2025 Pneumococcal vaccine <65 Aged Out No longer eligible based on patient's age to complete this topic Procedures Procedure Name Priority Date/Time Associated Diagnosis Comments POC INFLUENZA A/B, COVID-19 ANTIGEN Routine 04/03/2025 4:25 PM CDT Strep throat POCT RAPID STREP Routine 04/03/2025 4:25 PM CDT Strep throat from Last 3 Months Results * (ABNORMAL) POC Influenza A/B, COVID-19 antigen (04/03/2025 4:25 PM CDT) Influenza A Ag, POC Negative Negative [facility] Influenza B Ag, POC Negative Negative [facility] COVID-19 Ag POC Positive(A) Presumptive Negative, Invalid [facility] Nasal 04/03/2025 4:25 PM CDT Evy Cadet NP POINT OF CARE TEST ORDERABLES Final Result Performing Organization Address [facility]/State/[facility] Co de Phone Number [facility] [address] [place] [address] * (ABNORMAL) POCT rapid strep A (04/03/2025 4:25 PM CDT) Rapid Strep A, POC Positive(A ) Negative Swab 04/03/2025 4:25 PM CDT us Evy Cadet NP POINT OF CARE TEST ORDERABLES Final Result from Last 3 Months Insurance [facility] [employer] [facility] [employer] Care Teams Theoretical Physicist Relationship Specialty Start Date End Date Unknown, Notinfile PCP - General 11/26/24
--- OUTSIDE RECORDS SUMMARY | 2025-05-02 11:59 | XMS_ITS | Clinical Summary ---
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
[2025-05-02 12:14] LABS: HIV 1/2 Ab P24 Ag Result Negative (Negative)
--- NOTE | 2025-05-02 12:24 | PC.NURSE ---
1224- Spoke with Dr. Riddle regarding patient. Still feeling tired and just unwell. Nausea is improved. Per Dr. Riddle, discharge patient to home.
--- NOTE | 2025-05-03 09:17 | PM.OBTRLD ---
OB - Triage/Final Diagnosis Visit Information Reason for evaluation: other (Nausea vomiting) Comments/Additional reasons for admission: I have assessed the risk for this patient, Martha Duarte, and determined that she would benefit from observation care. Evaluation Laboratory results: Laboratory Tests 05/02/25 10:52 WBC 9.8 RBC 3.40 L Hgb 11.2 L Hct 32.7 L MCV 96.2 MCH 32.9 MCHC 34.3 RDW 14.0 Plt Count 207 MPV 10.6 H Immature Gran % (Auto) 1.0 H Neut % (Auto) 68.1 Lymph % (Auto) 22.6 [place] % (Auto) 5.3 Eos % (Auto) 2.6 Baso % (Auto) 0.4 Lymph # (Auto) 2.21 [place] # (Auto) 0.5 Eos # (Auto) 0.3 Baso # (Auto) 0.0 Abs Immat Gran (auto) 0.10 H Absolute Neuts (auto) 6.7 Absolute Nucleated RBC 0.000 Nucleated RBC % 0.0 Sodium 136 L Potassium 3.5 Chloride 108 H Carbon Dioxide 21 L Anion Gap 7 BUN 4 L D Creatinine 0.50 L Estim Creat Clear Calc Not Reportable Estimated GFR > 60 Glucose 70 Calcium 8.4 Total Bilirubin 0.4 AST 30 ALT 16 Alkaline Phosphatase 121 Total Protein 6.4 Albumin 3.3 L HIV 1&2 Ab/P24 Ag 4thGn Negative Vital signs: Vital Signs - 24 hr 05/02/25 11:19 05/02/25 11:24 05/02/25 11:31 Pulse Rate 64 66 Blood Pressure 144/84 H 136/84 Oxygen Delivery Room Air
== END 2025-05-02 12:40 | disposition home or self-care (01) ==
PROVIDERS: Admitting Provider Obstetrics & Gynecology; Visit Provider Obstetrics & Gynecology
DX: O21.2 Late vomiting of pregnancy (principal); Z3A.37 37 weeks gestation of pregnancy
CPT/HCPCS: 36415; 80053; 85025; 86703; 96374; G0378; G0379; G0432; J2405

== ENCOUNTER 2025-05-07 14:56 | Outpatient (RCR) | payer OTHER, SELFPAY ==
--- NOTE | ~2025-05-07 | US_ITS ---
EXAMINATION: US OB BPP wo non-stress DATE: 05/07/2025 16:04 INDICATION: Decreased movements during third trimester . Assess amniotic fluid index. TECHNIQUE: Real-time pelvic ultrasound was performed. The interpreting radiologist was not present for the study. COMPARISON: None. FINDINGS: There is a single living fetus in vertex presentation. The placenta is anterior fundal and not low-lying. heart rate is 146 beats per minute (bpm). Normal amniotic fluid index of 18.6 cm (5th%-95%: 7.3-23.9 cm at 38 weeks estimated gestational age). Biophysical profile performed by the technologist: breathing (30 sec sustained breathing in 30 minutes): 2 out of 2 movement (3 gross body movements in 30 minutes): 2 out of 2 tone (one episode of likzcbs-gaapuevwb-bengalj limb movement): 2 out of 2 Amniotic fluid pocket (2 cm): 2 out of 2 Total score: 8 out of 8 IMPRESSION: 1. Single living fetus in vertex presentation with heart rate of 146 bpm. 2. Biophysical profile 8 out of 8. 3. Normal amniotic fluid index of 18.6 cm. Reviewed, dictated and finalized at location A. EWATER TREATMENT PLANT CHEMIST
[2025-05-07 16:22] VITALS: PULSE 61
== END 2025-05-12 11:01 | disposition other institution (70) ==
LOC: ANHOBOP 14:56
PROVIDERS: Visit Provider Obstetrics & Gynecology
DX: O36.8130 Decreased fetal movements, third trimester, not applicable or unspecified (principal); Z3A.38 38 weeks gestation of pregnancy
CPT/HCPCS: 59025; 76819

== ENCOUNTER 2025-05-08 14:06 | Outpatient (CLI) | payer OTHER, SELFPAY ==
[2025-05-08 16:28] VITALS: BMI 36.8
[2025-05-08 16:31] LABS: Hematocrit 34.6 % (37.0-47.0); Hemoglobin 11.8 g/dL (12.0-15.0); Immature Granulocyte Percent A 0.8 % (0-0.5); Lymphocytes Absolute Auto 2.61 K/mm3 (0.9-3.2); Mean Corpuscular HGB Conc 34.1 g/dl (32-36); Mean Corpuscular Hemoglobin 33.1 pg (26-34); Mean Corpuscular Volume 97.2 fl (80-100); Nucleated Red Blood Cells Absolute Auto 0.000 K/mm3 (0.0-0.012); Nucleated Red Blood Cells Perc 0.0 % (0.0-0.2); Platelet Count Result 200 k/mm3 (150-375); Red Blood Count 3.56 M/mm3 (4.2-5.4); White Blood Count 9.0 K/mm3 (4.5-10.0)
--- OUTSIDE RECORDS SUMMARY | 2025-05-08 16:54 | XMS_ITS | Encounter Summary ---
Author Organization [facility] Address [facility] [place] [address] Care Team Providers Care Polystyrene Bead Molder Name Role Phone Safia Plata Primary Care Provider + [phone] Encounter Details Date Type Department Care Team (Late st Contact Info) Description 07/16/2021 Corebook Message Enc [facility] Family & Internal Medicine [facility] [address] [place] [address] [facility] Provider Record request Social History Tobacco Use Types Packs/Day Years Used Date Smoking Tobacco: Never Smokeless Tobacco: Never Alcohol Use Standard Drinks/Week Comments Yes 0 (1 standard drink = 0.6 oz pur e alcohol) PHQ-2 Answer Date Recorded PHQ-2 Score - If the patient scores above 3, please move on to questions 3-9 0 03/05/2021 Comments No Sex and Gender Information Value Date Recorded Sex Assigned at Not on file Legal Sex Female 1:19 PM CDT Gender Identity Not on file Sexual Orientation Not on file documented as of this encounter Plan of Treatment Not on file documented as of this encounter Visit Diagnoses Not on filedocumented in this encounter Additional Health Concerns Assessment Noted Time PHQ-9 Depression Total Score: 0 03/05/20 21 1:57 PM CDT documented as of this encounter Care Teams Polystyrene Bead Molder Relationship Specialty [place] [address] [place] [address] PCP - General PHYSICIAN STEEPING PRESS TENDER 03/05/21 documented as of this encounter
--- OUTSIDE RECORDS SUMMARY | 2025-05-08 16:54 | XMS_ITS | Clinical Summary ---
Author Organization [facility] Address [address] [place] [address] Care Team Providers Care Cork Molder Name Role Phone Safia Plata Primary Care Provider + [phone] Allergies No known active allergies Medications BUSPIRONE 15 MG tabletIndicatio ns:Situational anxiety TAKE 1 TABLET BY MOUTH TWICE A DAY 180 tablet 2 Active Additional Information Patient not taking.Reported on 07/22/2022 albuterol sulfate HFA 108 (90 Base) MCG/ACT inhaler 2 Active vitamin (ZATEAN-PN PLUS) 28-0.6-0.4-340 MG capsule Take 1 capsule by mouth daily. Active Active Problems No known active problems Immunizations Immunization Administration Dates Next Due Td (Generic) 07/05/2015 Family History Medical History Relation Comments Heart Disease Maternal Grandfather Cancer Maternal Grandmother Cancer Paternal Grandfather Cancer Paternal Grandmother Relation Status Comments Maternal Grandfather Maternal Grandmother Paternal Grandfather Paternal Grandmother Social History Tobacco Use Types Packs/Day Years Used Date Smoking Tobacco: Never Smokeless Tobacco: Never Tobacco Cessation:Counseling Given: No Alcohol Use Standard Drinks/Week Comments Yes 3.3 (1 standard drink = 0.6 oz p ure alcohol) PHQ-2 Answer Date Recorded Patient Health Questionnaire-2 Score 0 07/22/2022 Comments No Sex and Gender Information Value Date Recorded Sex Assigned at Not on file Legal Sex Female 1:19 PM CDT Gender Identity Not on file Sexual Orientation Not on file Last Filed Vital Signs Vital Sign Reading Time Taken Comments Blood Pressure 114/69 07/22/2022 7:57 AM JACK SPINNER Pulse 61 07/22/2022 7:57 AM JACK SPINNER Temperature 36.6 C (97.8 F) 07/22/2022 7:57 AM JACK SPINNER Respiratory Rate 18 07/22/2022 7:57 AM JACK SPINNER Oxygen Saturation 99% 07/22/2022 7:57 AM JACK SPINNER Inhaled Oxygen Concentration - - Weight 108.4 kg (239 lb) 07/22/2022 7:57 AM JACK SPINNER Height 170.2 cm (5' 7) 07/22/2022 7:57 AM JACK SPINNER Body Mass Index 37.43 07/22/2022 7:57 AM JACK SPINNER Plan of Treatment Health Maintenance Due Date Last Done Comments Hepatitis C 11/05/2011 Hepatitis B Vaccines (1 of 3 - 19+ 3-dose series) 2012 DTaP, Tdap and Td Vaccines ( 1 - Tdap) 07/06/2015 07/05/2015 HPV Vaccines (1 - 3-dose SCD M series) 2020 Annual Physical 11/13/2022 11/13/2021 Cervical Cancer Screening Pa p with HPV Testing (Age 30 to 64) Every 5 Years 11/05/2023 Cervical Cancer Screening Pa p Smear (Age 30 to 64) Every 3 Years 11/13/2024 11/13/2021 Cervical Cancer Screening with HPV 11/13/2024 COVID-19 Vaccine (2024-2 6 season) 2025 Influenza Adult (#1) 2025 Hepatitis A Vaccines Aged Out No long er eligible based on patient's age to complete this topic Meningococcal B Vaccine Aged Out No l onger eligible based on patient's age to complete this topic Meningococcal Vaccine Aged Out No praveen salomon eligible based on patient's age to complete this topic Pneumococcal Vaccine: Pediat rics (0 to 5 Years) and At-Risk Patients (6 to 49 Years) Aged Out No longer eligi ble based on patient's age to complete this topic RSV Immunizations Under 20 Months Aged Out No longer eligible based on patient's age to complete this topic Procedures Procedure Name Priority Date/Time Associated Diagnosis Comments THINPREP PAP W AGE BASED SCREENING PROTOCOLS Routine 11/13/2021 11:08 AM CDT Cervical cancer screening from Last 3 Months or Most Recently Relevant to Health Maintenance Results * THINPREP PAP W AGE BASED SCREENING (QUEST ONLY) (11/13/2021 11:08 AM CDT) Comment: [employer] [facility] Comment: This order for age-based cervical cancer and STI screening follows ACOG guidelines(PB 168, 140, KYG771). See individual assays for performing site location. CLINICAL INFORMATION: 7 or more years since last Pap [facility] Clinical Information: INFORMATION NOT PROVIDED [facility] Date of Last Pap INFORMATION NOT PROVIDED [facility] Previous Biopsy? INFORMATION NOT PROVIDED [facility] SOURCE (QST) Endocervix [facility] STATEMENT OF ADEQUACY: [facility] Comment: Satisfactory for evaluation. Endocervical/transformation zone component absent. Age and/or menstrual status not provided PAP INTERPRETATION/RESU LTS Negative for intraepithelial lesion or malignancy. [facility] COMMENT: This Pap test has been evaluated with computer assisted technology. [facility] CLERK FUNERAL DETAIL Que [facility] Comment: GXX, CT(ASCP) CT Screening Location: [place] [address] [place] [address] REVIEW CLERK FUNERAL DETAIL: [facility] Comment: SXW, CT(ASCP) CT Screening Location: [place] [address] [place] [address] COMMENT: [facility] Comment: EXPLANATORY NOTE: The Pap is a screening test for cervical cancer. It is not a diagnostic test and is subject to false negative and false positive results. It is most reliable when a satisfactory sample, regularly obtained, is submitted with relevant clinical findings and history, and when the Pap result is evaluated along with historic and current clinical information. 11/13/2021 11:0 8 AM CDT 11/13/2021 11:39 PM CDT Safia MACE PATHOLOGY/CYTOLOGY ORDERABLE S Final Result [facility] [[email or web address] Appinions Navarro DANDY ORDERS [facility] [address] [place] [address] from Last 3 Months or Most Recently Relevant to Health [place] [address] Care Teams Cork Molder Relationship Specialty [place] [address] [facility] [place] [address] PCP - General PHYSICIAN NC MANAGER 03/05/21
--- OUTSIDE RECORDS SUMMARY | 2025-05-08 16:55 | XMS_ITS | Encounter Summary ---
Author Organization [facility] Address [facility] [place] [address] Care Team Providers Care Associate Director Of Nursing Name Role Phone Safia Plata Primary Care Provider [phone] Encounter Details Date Type Department Care Team (Late st Contact Info) Description 07/09/2022 GoodApril Message [employer] [facility] Health Information Services [address] [place] [address] [facility], [facility] Provider PT NAME CHANGE Social History Tobacco Use Types Packs/Day Years Used Date Smoking Tobacco: Never Smokeless Tobacco: Never Alcohol Use Standard Drinks/Week Comments Yes 3.3 (1 standard drink = 0.6 oz p ure alcohol) PHQ-2 Answer Date Recorded PHQ-2 Score - If the patient scores above 3, please move on to questions 3-9 0 11/13/2021 Comments No Sex and Gender Information Value [...] documented as of this encounter Care Teams Associate Director Of Nursing Relationship Specialty [place] [address] [place] [address] PCP - General PHYSICIAN CHILD CARE SPECIALIST 03/05/21 documented as of this encounter
--- OUTSIDE RECORDS SUMMARY | 2025-05-08 16:55 | XMS_ITS | Encounter Summary ---
Author Organization [facility] Address [address] [place] [address] Care Team Providers Care Street Commissioner Name Role Phone Unknown, Notinfile Primary Care Provider Unavail able Encounter Details Date Type Department Care Team (Late st Contact Info) Description 05/04/2025 Telephone [facility]ient Care at [address] [address] Elida Hartman GASKET NOTCHER [address] [place] [address] [address] [place] [address] Social History Tobacco Use Types Packs/Day Years Used Date Smoking Tobacco: Never Assessed Estimated Date of Delivery Comme nts Yes 05/21/2025 Sex and Gender Information Value Date Recorded Sex Assigned at Not on file Legal Sex 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 If not able to resend - call back number is [phone] (verified) documented in this encounter Plan of Treatment Not on file documented as of this encounter Visit Diagnoses Not on filedocumented in this encounter Additional Health Concerns Infection Onset Date Last Indicated Resolved Time COVID: Recovered Comment:Added based on recent COVID infection. 04/13/2025 05/04/2025 documented as of this encounter Care Teams Street Commissioner Relationship Specialty Start Date End Date Unknown, Notinfile PCP - General 11/26/24 documented as of this encounter
--- OUTSIDE RECORDS SUMMARY | 2025-05-08 16:55 | XMS_ITS | Encounter Summary ---
Author Organization [facility] Address [facility] [place] [address] Care Team Providers Care Occupational Therapist Rehab Manager Name Role Phone Safia Plata Primary Care Provider + [phone] Encounter Details Date Type Department Care Team (Late st Contact Info) Description 07/29/2022 Simple Message Enc [facility] Family & Internal Medicine [facility] [id number] [place] [phone] Safia Plata PA [address] [place] [address] Question regarding TSH W/REFLEX Social History Tobacco Use Types Packs/Day Years [...] on file Sexual Orientation Not on file COVID-19 Exposure Response Date Recorded In the last 10 days, have yo u been in contact with someone who was confirmed or suspected to have Coronavirus/COVID-19? No / Unsure 07/22/2022 7:52 AM TAFE TEACHER documented as of this encounter Plan of Treatment Not on file documented as of this encounter Visit Diagnoses Not on filedocumented in this encounter Additional Health Concerns Assessment Noted Time PHQ-9 Depression Total Score: 0 03/05/20 1:57 PM CDT documented as of this encounter Care Teams Occupational Therapist Rehab Manager Relationship Specialty [place] [address] [place] [address] PCP - General PHYSICIAN ENGINEERING TECHNICAL WRITER 03/05/21 documented as of this encounter
--- OUTSIDE RECORDS SUMMARY | 2025-05-08 16:55 | XMS_ITS | Clinical Summary ---
Author Organization [facility] Address [address] [place] [address] Care Team Providers Care Cnp Name Role Phone Unknown, Notinfile Primary Care Provider Unavail able Allergies No known active allergies Medications metFORMIN XR (GLUCOPHAGE XR) 500 mg 24 hr tablet Take 1 tablet (500 mg total) by mouth 2 (two) times a day 11/02/19 24 Active valACYclovir (VALTREX) 500 mg tablet Take 1 tablet (500 mg total) by mouth 2 (two) times a day 12/21/19 24 Active albuterol HFA (PROVENTIL HFA,VENTOLIN HFA,PROAIR HFA) 90 mcg/actuation inhalerIndicat ions:Acute cough Inhale 2 puffs every 6 (six) hours as needed for wheezing for up to 7 days 1 each 09/23/19 25 Active Additional Information Patient not taking.Reported on 11/26/2024 ergocalciferol (VITAMIN D) 50,000 unit capsule TAKE 1 CAPSULE ONCE A WEEK WITH A MEAL 11/11/19 25 Active aspirin 81 mg tablet Take 81 mg by mouth 12/14/19 25 Active busPIRone (BUSPAR) 15 mg tablet Take 1 tablet (15 mg total) by mouth 2 (two) times a day 11/27/19 22 Active ferrous sulfate 325 mg (65 mg of elemental iron) tablet Take 1 tablet (325 mg total) by mouth 02/06/20 25 Active cephalexin (KEFLEX) 500 mg capsuleIndicat ions:Celluliti s of right hand Take 1 capsule (500 mg total) by mouth 4 (four) times a day for 7 days 28 capsule 05/04/20 25 025 Active amoxicillin 500 mg tablet/capsule Indications:St rep throat Take 1 tablet/capsule (500 mg total) by mouth 2 (two) times a day for 10 days 20 tablet/caps ule 04/03/20 25 025 cephalexin (KEFLEX) 500 mg capsule Take 1 capsule (500 mg total) by mouth 4 (four) times a day for 7 days 28 capsule 05/04/20 25 025 Discontinued cephalexin (KEFLEX) 500 mg capsuleIndicat ions:Celluliti s of right hand Take 1 capsule (500 mg total) by mouth 4 (four) times a day for 7 days 28 capsule 05/04/20 25 025 Discontinued Active Problems Estimated Date of Delivery Comme nts Yes 05/21/2025 No known active problems Encounters Date Type Department Care Team Description 05/04/2025 11:45 AM CDT Office Visit [facility] Con[facility]ient Care at [address] [address] Elida Hartman, MYRNA Cellulitis of right hand (Primary Dx) 05/04/2025 Telephone [facility] Care at [address] [address] Elida Hartman, MYRNA 04/03/2025 4:15 PM CDT Office Visit [facility] Care at [address] [address] Evy Cadet NP Strep throat (Primary Dx); COVID-19 from Last 3 Months Social History Tobacco Use Types Packs/Day Years Used Date Smoking Tobacco: Never Assessed Estimated Date of Delivery Comme nts Yes 05/21/2025 Sex and Gender Information Value Date Recorded Sex Assigned at Not on file Legal Sex Female 2:51 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 Gender Identity Not on file Sexual Orientation Not on file Obstetrics History Para Term AB IAB SAB Ectopic Multiple Livin g Live Births 2 Date Outcome GA Total Labor Labor/2nd/3rd Weight Sex Type Anes PTL Patricia A1 A5 Name Clin Current Last Filed Vital Signs Vital Sign Reading Time Taken Comments Blood Pressure 133/81 05/04/2025 10:31 AM CDT Pulse 74 05/04/2025 10:31 AM CDT Temperature 36.6 C (97.9 F) 05/04/2025 10:31 AM CDT Respiratory Rate 20 05/04/2025 10:31 AM CDT Oxygen Saturation 99% 05/04/2025 10:31 AM CDT Inhaled Oxygen Concentration - - Weight 109.8 kg (242 lb) 05/04/2025 10:31 AM CDT Height 172.7 cm (5' 8) 05/04/2025 10:31 AM CDT Body Mass Index 36.8 05/04/2025 10:31 AM CDT Plan of Treatment Health Maintenance Due Date Last Done Comments Cervical Cancer Screening 1993 Depression Screening 1993 Hepatitis C Screening 1993 Varicella Vaccines (1 of 2 - 13+ 2-dose series) 2006 Hepatitis B Screening 11/05/2011 Regular Well Visit/Exam 18-64 11/05/2011 DTaP/Tdap/Td Vaccine (1 - Tdap) 07/06/2015 07/05/2015 HPV Vaccines (1 - 3-dose SCD M series) 2020 Covid-19 Vaccine (3 - 2024-2 6 season) 2025 08/23/2020, 07/25/2020 Influenza Vaccine [...] CDT) Influenza A Ag, POC Negative Negative [facility] Influenza B Ag, POC Negative Negative [facility] COVID-19 Ag POC Positive(A) Presumptive Negative, Invalid [facility] Nasal 04/03/2025 4:25 PM CDT us Evy Cadet NP POINT OF CARE TEST ORDERABLES Final Result [facility] ED[facility] [address] * (ABNORMAL) POCT rapid strep A (04/03/2025 4:25 PM CDT) Rapid Strep A, POC Positive(A ) Negative Swab 04/03/2025 4:25 PM CDT us Evy Cadet NP POINT OF CARE TEST ORDERABLES Final Result from Last 3 Months Additional Health Concerns Infection Onset Date Last Indicated COVID: Recovered Comment:Added based on recent COVID infection. 04/13/2025 025 Insurance [facility] Care Teams Cnp Relationship Specialty Start Date End Date Unknown, Notinfile PCP - General 11/26/24
--- OUTSIDE RECORDS SUMMARY | 2025-05-08 16:55 | XMS_ITS | Clinical Summary ---
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
[2025-05-08 16:59] LABS: Alanine Aminotransferase 15 U/L (6-35); Albumin Level 3.7 g/dL (3.5-5.1); Alkaline Phosphatase 139 U/L (38-126); Anion Gap 7 mmol/L (4-12); Aspartate Amino Transferase 28 U/L (14-36); Bilirubin,Total 0.5 mg/dL (0.2-1.3); Blood Urea Nitrogen 4 mg/dL (7-17); Calcium 8.8 mg/dL (8.4-10.2); Carbon Dioxide 20 mmol/L (22-30); Chloride 106 mmol/L (98-107); Estimated CRCL calculation 174 ml/min; Estimated Glomerular Filt Rate > 60; Glucose 78 mg/dL (65-110); Potassium 3.4 mmol/L (3.4-5.0); Sodium 133 mmol/L (137-145); Total Protein 7.0 g/dL (6.3-8.2)
[2025-05-08 19:42] LABS: Total Volume 24 Hour Urine 2200 ml
[2025-05-08 19:44] LABS: Total Volume 24 Hour Urine 2200 ml
[2025-05-08 19:51] LABS: Serum Creat 0.51
[2025-05-08 20:04] LABS: Total Protein Urine 24 Hr 484 mg/24hr (28-141); Total Protein Urine Random 22 mg/dL
[2025-05-08 22:56] LABS: Creatinine Clearance Urine 112.8 ml/min (75-125)
== END 2025-05-08 14:07 | disposition home or self-care (01) ==
LOC: ANHOBOP 16:10
PROVIDERS: Visit Provider Obstetrics & Gynecology
DX: M54.89 Other dorsalgia (principal)
CPT/HCPCS: 36415; 80053; 81050; 82575; 84156; 85025

== ENCOUNTER 2025-05-09 17:07 | Inpatient (IN) | payer OTHER, SELFPAY ==
[2025-05-09] VITALS (93 sets, daily range): BP systolic 141–160; BP diastolic 80–101; PULSE 57–91; TEMP 36.3–36.8; O2SAT 95–100; BMI 36.8
[2025-05-09 17:40] LABS: Hematocrit 34.5 % (37.0-47.0); Hemoglobin 11.6 g/dL (12.0-15.0); Immature Granulocyte Percent A 0.7 % (0-0.5); Lymphocytes Absolute Auto 2.72 K/mm3 (0.9-3.2); Mean Corpuscular HGB Conc 33.6 g/dl (32-36); Mean Corpuscular Hemoglobin 32.3 pg (26-34); Mean Corpuscular Volume 96.1 fl (80-100); Nucleated Red Blood Cells Absolute Auto 0.000 K/mm3 (0.0-0.012); Nucleated Red Blood Cells Perc 0.0 % (0.0-0.2); Platelet Count Result 213 k/mm3 (150-375); Red Blood Count 3.59 M/mm3 (4.2-5.4); White Blood Count 10.7 K/mm3 (4.5-10.0)
[2025-05-09 17:49] LABS: Alanine Aminotransferase 15 U/L (6-35); Albumin Level 3.7 g/dL (3.5-5.1); Alkaline Phosphatase 135 U/L (38-126); Anion Gap 7 mmol/L (4-12); Aspartate Amino Transferase 30 U/L (14-36); Bilirubin,Total 0.6 mg/dL (0.2-1.3); Blood Urea Nitrogen 5 mg/dL (7-17); Calcium 8.8 mg/dL (8.4-10.2); Carbon Dioxide 19 mmol/L (22-30); Chloride 109 mmol/L (98-107); Estimated Glomerular Filt Rate > 60; Glucose 76 mg/dL (65-110); Potassium 3.4 mmol/L (3.4-5.0); Sodium 135 mmol/L (137-145); Total Protein 7.2 g/dL (6.3-8.2)
[2025-05-09] MEDS: DINOPROSTONE 10 MG VAG INSERT VAGINAL (17:50)
--- NOTE | 2025-05-09 17:51 | LDADM ---
This patient, Martha Duarte, was admitted to Labor/Delivery/Recovery 106 on 05/09/25 at 17:07. Plans for labor, pain management and were discussed with patient. Patient/family oriented to hospital policies and general routines including ID bracelet, bed and alarms, visiting hours, pain management, procedures, bathroom and other care routines, personal items, smoking policy, room service/diet and guest tray routines, security routines, and visiting hours. Patient/Family are encouraged to report perceived risks to care and to ask questions if they do not understand what they are told or what they should do. See OBIX for further documentation.
[2025-05-09 18:23] LABS: Syphilis IgG/IgM Antibody Non-Reactive (Nonreactive)
[2025-05-09 18:35] LABS: HIV 1/2 Ab P24 Ag Result Negative (Negative)
[2025-05-09] MEDS: CALCIUM CARBONATE (TUMS) 500 MG (200 MG ELEMENTAL) PO (19:22)
[2025-05-10] VITALS (284 sets, daily range): BP systolic 119–178; BP diastolic 57–104; PULSE 51–133; RESP 15–18; TEMP 36.4–36.8; O2SAT 87–100
--- NOTE | 2025-05-10 00:43 | PM.OBPNVD ---
OB - PN: Subj Subjective Date/time seen: 05/10/25 00:43 Interval history: 130 cat 2, tachysystole, requesting pain meds depending on her exam, cervix /-3. Cervidil removed. Offered Fentanyl. OB - PN: Obj Data Labs 05/09/25 17:32 05/09/25 17:32 Labs: Laboratory Results - last 24 hr 05/09/25 17:32 WBC 10.7 H RBC 3.59 L Hgb 11.6 L Hct 34.5 L MCV 96.1 MCH 32.3 MCHC 33.6 RDW 13.8 Plt Count 213 MPV 10.6 H Immature Gran % (Auto) 0.7 H Neut % (Auto) 66.0 Lymph % (Auto) 25.3 [place] % (Auto) 4.7 Eos % (Auto) 2.8 Baso % (Auto) 0.5 Lymph # (Auto) 2.72 [place] # (Auto) 0.5 Eos # (Auto) 0.3 Baso # (Auto) 0.1 Abs Immat Gran (auto) 0.08 H Absolute Neuts (auto) 7.1 H Absolute Nucleated RBC 0.000 Nucleated RBC % 0.0 Sodium 135 L Potassium 3.4 Chloride 109 H Carbon Dioxide 19 L Anion Gap 7 BUN 5 L Creatinine 0.54 L Estim Creat Clear Calc Not Reportable Estimated GFR > 60 Glucose 76 Calcium 8.8 Total Bilirubin 0.6 AST 30 ALT 15 Alkaline Phosphatase 135 H Total Protein 7.2 Albumin 3.7 Syphilis IgG/IgM Ab Non-reactive HIV 1&2 Ab/P24 Ag 4thGn Negative Rubella IgG Antibody 14.3 Blood Type B Positive Antibody Screen Negative OB - PN A/P Time Spent With Patient Time: Total time spent is greater than 50% in coordination of care (as documented) at patient's floor/unit and/or counseling patient:
[2025-05-10] MEDS: fentaNYL CITRATE INJ (*CRX) 100 MCG/2 ML VIAL 50 MCG IV PUSH (00:45)
[2025-05-10] MEDS: LACTATED RINGERS 1,000 ML 125 ML IV CONT (02:24)
[2025-05-10] MEDS: OXYTOCIN 30 UNITS/NS 500 ML 30 UNITS/500 ML BAG IV CONT (02:24)
--- NOTE | 2025-05-10 02:34 | WPDANESEPP ---
Anes - Eval Pre Procedure Procedure: Labor Epidural Date/Time: 05/10/25 02:34 Surgeon: Devyn Preop Diagnosis: Labor Pain Pre Op Diagnosis: IOL Patient Data Age: 29 Gender: F Height: 1.73 m Weight: 110 kg Last Vital Signs Temp 36.8 C 05/09/25 17:56 Pulse 55 L 05/10/25 02:31 BP 164/85 H 05/10/25 02:31 Pulse Ox 98 05/10/25 02:31 O2 Del Method Room Air 05/09/25 17:51 Allergies Allergy/AdvReac Type Severity Reaction Status Date / Time No Known Allergies Allergy Verified 05/09/25 17:51 Home Medications ?Medication ?Instructions ?Recorded ?Confirmed ?Type aspirin 81 mg tablet 81 mg PO DAILY 12/13/24 05/09/25 History metformin 500 mg tablet,extended 500 mg PO DAILY #90 tabs 01/11/25 05/09/25 Rx release 24 hr ferrous sulfate 325 mg (65 mg 325 mg PO DAILY 02/05/25 05/09/25 History iron) tablet,delayed release ergocalciferol (vitamin D2) 1,250 1,250 mcg PO WEEKLY #30 caps 04/17/25 05/07/25 Rx mcg (50,000 unit) capsule valacyclovir 500 mg tablet 500 mg PO BID 5 weeks #70 tabs 04/17/25 05/09/25 Rx vit no.95-ferrous 1 tablet PO DAILY 04/23/25 05/09/25 History fumarate 28 mg-folic acid 800 mcg tablet () cephalexin 500 mg capsule 500 mg PO Q12H 05/07/25 05/09/25 History Laboratory Tests 05/09/25 17:32 WBC 10.7 H K/mm3 (4.5-10.0) RBC 3.59 L M/mm3 (4.2-5.4) Hgb 11.6 L g/dL (12.0-15.0) Hct 34.5 L % (37.0-47.0) MCV 96.1 fl (80-100) MCH 32.3 pg (26-34) MCHC 33.6 g/dl (32-36) RDW 13.8 % (11.5-14.5) Plt Count 213 k/mm3 (150-375) MPV 10.6 H fl (7.4-10.4) Immature Gran % (Auto) 0.7 H % (0-0.5) Neut % (Auto) 66.0 % (45.5-73.1) Lymph % (Auto) 25.3 % (18.3-44.2) [place] % (Auto) 4.7 % (2.6-8.5) Eos % (Auto) 2.8 % (0-4.4) Baso % (Auto) 0.5 % (0.2-1.2) Lymph # (Auto) 2.72 K/mm3 (0.9-3.2) [place] # (Auto) 0.5 K/mm3 (0.1-0.6) Eos # (Auto) 0.3 K/mm3 (0-0.3) Baso # (Auto) 0.1 K/mm3 (0.0-0.1) Abs Immat Gran (auto) 0.08 H K/mm3 (0.00-0.031) Absolute Neuts (auto) 7.1 H K/mm3 (1.3-6.7) Absolute Nucleated RBC 0.000 K/mm3 (0.0-0.012) Nucleated RBC % 0.0 % (0.0-0.2) Sodium 135 L mmol/L (137-145) Potassium 3.4 mmol/L (3.4-5.0) Chloride 109 H mmol/L (98-107) Carbon Dioxide 19 L mmol/L (22-30) Anion Gap 7 mmol/L (4-12) BUN 5 L mg/dL (7-17) Creatinine 0.54 L mg/dL (0.7-1.0) Estim Creat Clear Calc Not Reportable Estimated GFR > 60 (59 - ) Glucose 76 mg/dL (65-110) Calcium 8.8 mg/dL (8.4-10.2) Total Bilirubin 0.6 mg/dL (0.2-1.3) AST 30 U/L (14-36) ALT 15 U/L (6-35) Alkaline Phosphatase 135 H U/L (38-126) Total Protein 7.2 g/dL (6.3-8.2) Albumin 3.7 g/dL (3.5-5.1) Syphilis IgG/IgM Ab Non-reactive (Nonreactive) HIV 1&2 Ab/P24 Ag 4thGn Negative (Negative) Rubella IgG Antibody 14.3 IU/ML (10 - ) Blood Type B Positive Antibody Screen Negative Patient hx anesthesia problems: none Family hx anesthesia problems: none Results Review: All pre-operative results and documents have been reviewed as part of the pre-operative evaluation. [facility] Past Medical History Medical History PCOS (polycystic ovarian syndrome) HSV-1 (herpes simplex virus 1) infection Surgical History Surgical History Hx laparoscopic cholecystectomy History of ankle surgery Family History Family History Grandparent Heart disease Lung cancer Pancreatic cancer Colon cancer Father Neuropathy Social History Social History Smoking status: Never smoker Second hand tobacco smoke exposure: No Alcohol intake: never Substance use: never Substance use type: does not use Do You Feel Safe in your Home?: Yes Lack of Transportation: No Lack of Food: Never True Current Housing: I Have Housing Concerned About Future Housing: No Difficulty Paying Gas/Electric Bills: No Difficulty Paying for Meds: No Currently Unemployed: No Education: Bachelor's Degree Difficulty w/ Childcare or Family Care: No Living arrangements: with family Additional living arrangements comments: Occupation/Education: occupation Gender identity (if verbalized by the patient): Female Sexual Orientation (if Verbalized by the Patient): Straight or Heterosexual Spiritual care concerns: No Exam Day of Procedure 05/10/25 02:34 Patient weight: normal Heart: regular rate and rhythm Lungs: normal air movement Airway: Mallampati scale class II Neurological: alert and oriented
--- NOTE | 2025-05-10 07:02 | PM.IMHP ---
H&P: HPI History of Present Illness Date/Time: 05/10/25 07:02 Chief Complaint: pre-eclampsia Narrative: Martha is a 29yo @ 38.3wks who was admitted overnight after ruling in for pre-eclampsia (24 hour urine protein 424g); on admission she was found to have multiple mild range BPs. She denies CASTORENA, vision changes, CP, SOB. She reports good movement. She is s/p cervidil that had to be pulled early due to frequent contractions. Her is complicated by: - Short interpregnancy interval; last delivery 01/2024 - h/o HSV, on PPX since 36wks - PCOS on metformin - H/o PP GHTN, on ASA - FOB has prolonged QTC - Newly diagnosed pre-eclampsia w/o severe features; 24h urine protein 424g Review of Systems Constitutional: Constitutional: Denies chills, Denies fever(s) and Denies headache(s) Eyes: Eyes: Denies change in vision ENT: Denies headache(s) Cardiovascular: Cardiovascular: Denies chest pain and Denies dyspnea Respiratory: Respiratory: Denies dyspnea Genitourinary: Genitourinary: Denies abnormal vaginal bleeding and Denies vaginal discharge Neurologic: Denies headache(s) Psychiatric: Psychiatric: Denies anxiety and Denies depression [facility] Past Medical History Medical History PCOS (polycystic ovarian syndrome) HSV-1 (herpes simplex virus 1) infection Surgical History Surgical History Hx laparoscopic cholecystectomy History of ankle surgery Family History Family History Grandparent Heart disease Lung cancer Pancreatic cancer Colon cancer Father Neuropathy Social History Social History Smoking status: Never smoker Second hand tobacco smoke exposure: No Alcohol intake: never Substance use: never Substance use type: does not use Do You Feel Safe in your Home?: Yes Lack of Transportation: No Lack of Food: Never True Current Housing: I Have Housing Concerned About Future Housing: No Difficulty Paying Gas/Electric Bills: No Difficulty Paying for Meds: No Currently Unemployed: No Education: Bachelor's Degree Difficulty w/ Childcare or Family Care: No Living arrangements: with family Additional living arrangements comments: Occupation/Education: occupation Gender identity (if verbalized by the patient): Female Sexual Orientation (if Verbalized by the Patient): Straight or Heterosexual Spiritual care concerns: No Meds Home Medications and Allergies Home Medications ?Medication ?Instructions ?Recorded ?Confirmed ?Type aspirin 81 mg tablet 81 mg PO DAILY 12/13/24 05/09/25 History metformin 500 mg tablet,extended 500 mg PO DAILY #90 tabs 01/11/25 05/09/25 Rx release 24 hr ferrous sulfate 325 mg (65 mg 325 mg PO DAILY 02/05/25 05/09/25 History iron) tablet,delayed release ergocalciferol (vitamin D2) 1,250 1,250 mcg PO WEEKLY #30 caps 04/17/25 05/07/25 Rx mcg (50,000 unit) capsule valacyclovir 500 mg tablet 500 mg PO BID 5 weeks #70 tabs 04/17/25 05/09/25 Rx vit no.95-ferrous 1 tablet PO DAILY 04/23/25 05/09/25 History fumarate 28 mg-folic acid 800 mcg tablet () cephalexin 500 mg capsule 500 mg PO Q12H 05/07/25 05/09/25 History Allergies Allergy/AdvReac Type Severity Reaction Status Date / Time No Known Allergies Allergy Verified 05/09/25 17:51 Vital Signs Vital Signs - 24 hr 05/09/25 17:34 05/09/25 17:35 05/09/25 17:39 Temperature Pulse Rate 66 Blood Pressure 157/88 H Pulse Oximetry 99 99 Oxygen Delivery 05/09/25 17:44 05/09/25 17:49 05/09/25 17:51 Temperature Pulse Rate Blood Pressure Pulse Oximetry 99 99 Oxygen Delivery Room Air 05/09/25 17:54 05/09/25 17:56 05/09/25 17:59 Temperature 98.3 F Pulse Rate Blood Pressure Pulse Oximetry 99 99 Oxygen Delivery 05/09/25 18:00 05/09/25 18:01 05/09/25 18:04 Temperature 98.2 F Pulse Rate 66 Blood Pressure 146/91 H Pulse Oximetry 100 Oxygen Delivery 05/09/25 18:09 05/09/25 18:14 05/09/25 18:15 Temperature Pulse Rate 64 Blood Pressure 155/97 H Pulse Oximetry 99 100 Oxygen Delivery 05/09/25 18:19 05/09/25 18:24 05/09/25 18:29 Temperature Pulse Rate Blood Pressure Pulse Oximetry 100 100 100 Oxygen Delivery 05/09/25 18:31 05/09/25 18:34 05/09/25 18:39 Temperature Pulse Rate 66 Blood Pressure 151/80 H Pulse Oximetry 100 99 Oxygen Delivery 05/09/25 18:44 05/09/25 18:46 05/09/25 18:49 Temperature Pulse Rate 72 Blood Pressure 148/86 H Pulse Oximetry 98 100 Oxygen Delivery 05/09/25 18:54 05/09/25 18:59 05/09/25 19:00 Temperature Pulse Rate 75 Blood Pressure 148/92 H Pulse Oximetry 100 99 Oxygen Delivery 05/09/25 19:04 05/09/25 19:09 05/09/25 19:14 Temperature Pulse Rate Blood Pressure Pulse Oximetry 99 100 99 Oxygen Delivery 05/09/25 19:16 05/09/25 19:19 05/09/25 19:24 Temperature Pulse Rate 70 Blood Pressure 153/84 H Pulse Oximetry 100 99 Oxygen Delivery 05/09/25 19:29 05/09/25 19:31 05/09/25 19:34 Temperature Pulse Rate 69 Blood Pressure 141/98 H Pulse Oximetry 99 100 Oxygen Delivery 05/09/25 19:39 05/09/25 19:44 05/09/25 19:46 Temperature Pulse Rate 65 Blood Pressure 155/90 H Pulse Oximetry 100 99 Oxygen Delivery 05/09/25 19:49 05/09/25 19:53 05/09/25 19:58 Temperature Pulse Rate Blood Pressure Pulse Oximetry 99 100 98 Oxygen Delivery 05/09/25 20:03 05/09/25 20:08 05/09/25 20:13 Temperature Pulse Rate Blood Pressure Pulse Oximetry 100 99 100 Oxygen Delivery 05/09/25 20:22 05/09/25 20:27 05/09/25 20:32 Temperature Pulse Rate Blood Pressure Pulse Oximetry 99 99 99 Oxygen Delivery 05/09/25 20:37 05/09/25 20:42 05/09/25 20:47 Temperature Pulse Rate Blood Pressure Pulse Oximetry 98 99 98 Oxygen Delivery 05/09/25 20:50 05/09/25 20:54 05/09/25 20:55 Temperature Pulse Rate 63 Blood Pressure 151/84 H Pulse Oximetry 98 100 Oxygen Delivery 05/09/25 21:00 05/09/25 21:05 05/09/25 21:10 Temperature 97.4 F L Pulse Rate 74 Blood Pressure 156/99 H Pulse Oximetry 100 99 99 Oxygen Delivery 05/09/25 21:15 05/09/25 21:16 05/09/25 21:20 Temperature Pulse Rate 67 Blood Pressure 153/82 H Pulse Oximetry 100 99 Oxygen Delivery 05/09/25 21:25 05/09/25 21:31 05/09/25 21:49 Temperature Pulse Rate 64 Blood Pressure 160/89 H Pulse Oximetry 98 100 Oxygen Delivery 05/09/25 21:50 05/09/25 21:54 05/09/25 21:59 Temperature Pulse Rate 72 Blood Pressure 148/83 H Pulse Oximetry 99 99 Oxygen Delivery 05/09/25 22:01 05/09/25 22:04 05/09/25 22:09 Temperature Pulse Rate 72 Blood Pressure 157/101 H Pulse Oximetry 100 99 Oxygen Delivery 05/09/25 22:14 05/09/25 22:16 05/09/25 22:19 Temperature Pulse Rate 66 Blood Pressure 146/82 H Pulse Oximetry 98 99 Oxygen Delivery 05/09/25 22:24 05/09/25 22:29 05/09/25 22:30 Temperature Pulse Rate 72 Blood Pressure 147/92 H Pulse Oximetry 99 99 Oxygen Delivery 05/09/25 22:34 05/09/25 22:39 05/09/25 22:44 Temperature Pulse Rate Blood Pressure Pulse Oximetry 100 99 97 Oxygen Delivery 05/09/25 22:45 05/09/25 22:49 05/09/25 22:54 Temperature Pulse Rate 69 Blood Pressure 155/90 H Pulse Oximetry 99 98 Oxygen Delivery 05/09/25 22:59 05/09/25 23:01 05/09/25 23:04 Temperature Pulse Rate 67 Blood Pressure 150/89 H Pulse Oximetry 98 99 Oxygen Delivery 05/09/25 23:11 05/09/25 23:16 05/09/25 23:21 Temperature Pulse Rate 67 Blood Pressure 151/96 H Pulse Oximetry 95 99 97 Oxygen Delivery 05/09/25 23:26 05/09/25 23:31 05/09/25 23:36 Temperature Pulse Rate 62 Blood Pressure 158/84 H Pulse Oximetry 98 98 97 Oxygen Delivery 05/09/25 23:41 05/09/25 23:46 05/09/25 23:51 Temperature Pulse Rate 62 Blood Pressure 155/100 H Pulse Oximetry 98 99 98 Oxygen Delivery 05/09/25 23:56 05/10/25 00:01 05/10/25 00:06 Temperature Pulse Rate 65 Blood Pressure 153/89 H Pulse Oximetry 98 99 99 Oxygen Delivery 05/10/25 00:11 05/10/25 00:15 05/10/25 00:16 Temperature 97.6 F Pulse Rate 58 L Blood Pressure 152/88 H Pulse Oximetry 100 99 Oxygen Delivery 05/10/25 00:21 05/10/25 00:26 05/10/25 00:31 Temperature Pulse Rate Blood Pressure Pulse Oximetry 99 99 100 Oxygen Delivery 05/10/25 00:36 05/10/25 00:41 05/10/25 00:46 Temperature Pulse Rate 64 Blood Pressure 159/104 H Pulse Oximetry 100 100 98 Oxygen Delivery 05/10/25 00:51 05/10/25 00:56 05/10/25 01:01 Temperature Pulse Rate 57 L Blood Pressure 142/97 H Pulse Oximetry 98 95 95 Oxygen Delivery 05/10/25 01:06 05/10/25 01:11 05/10/25 01:16 Temperature Pulse Rate 56 L Blood Pressure 140/63 Pulse Oximetry 97 96 97 Oxygen Delivery 05/10/25 01:21 05/10/25 01:26 05/10/25 01:31 Temperature Pulse Rate 56 L Blood Pressure 139/79 Pulse Oximetry 98 97 98 Oxygen Delivery 05/10/25 01:36 05/10/25 01:41 05/10/25 01:45 Temperature Pulse Rate 59 L Blood Pressure 153/98 H Pulse Oximetry 96 96 Oxygen Delivery 05/10/25 01:46 05/10/25 01:51 05/10/25 01:56 Temperature Pulse Rate Blood Pressure Pulse Oximetry 97 99 97 Oxygen Delivery 05/10/25 02:01 05/10/25 02:06 05/10/25 02:11 Temperature Pulse Rate 61 Blood Pressure 148/76 H Pulse Oximetry 100 98 100 Oxygen Delivery 05/10/25 02:16 05/10/25 02:21 05/10/25 02:26 Temperature Pulse Rate 65 Blood Pressure 156/92 H Pulse Oximetry 100 97 98 Oxygen Delivery 05/10/25 02:31 05/10/25 02:36 05/10/25 02:40 Temperature Pulse Rate 55 L 69 Blood Pressure 164/85 H 158/88 H Pulse Oximetry 98 99 Oxygen Delivery 05/10/25 02:41 05/10/25 02:46 05/10/25 02:51 Temperature Pulse Rate Blood Pressure Pulse Oximetry 100 100 100 Oxygen Delivery 05/10/25 02:54 05/10/25 02:56 05/10/25 03:00 Temperature 97.8 F Pulse Rate 64 66 Blood Pressure 151/91 H 147/79 H Pulse Oximetry 100 Oxygen Delivery 05/10/25 03:01 05/10/25 03:03 05/10/25 03:05 Temperature Pulse Rate 68 68 66 Blood Pressure 137/85 132/85 139/80 Pulse Oximetry 99 Oxygen Delivery 05/10/25 03:06 05/10/25 03:07 05/10/25 03:09 Temperature Pulse Rate 65 62 Blood Pressure 141/87 H 142/80 H Pulse Oximetry 99 Oxygen Delivery 05/10/25 03:11 05/10/25 03:13 05/10/25 03:14 Temperature Pulse Rate 60 61 60 Blood Pressure 141/72 H 138/73 134/72 Pulse Oximetry 98 Oxygen Delivery 05/10/25 03:16 05/10/25 03:19 05/10/25 03:20 Temperature Pulse Rate 61 57 L 60 Blood Pressure 143/76 H 138/85 137/82 Pulse Oximetry 98 Oxygen Delivery 05/10/25 03:21 05/10/25 03:22 05/10/25 03:24 Temperature Pulse Rate 67 65 Blood Pressure 138/79 142/78 H Pulse Oximetry 98 Oxygen Delivery 05/10/25 03:25 05/10/25 03:27 05/10/25 03:29 Temperature Pulse Rate 55 L 58 L Blood Pressure 139/80 136/79 Pulse Oximetry 99 Oxygen Delivery 05/10/25 03:30 05/10/25 03:31 05/10/25 03:33 Temperature Pulse Rate 64 57 L Blood Pressure 133/75 142/80 H Pulse Oximetry 100 Oxygen Delivery 05/10/25 03:35 05/10/25 03:37 05/10/25 03:39 Temperature Pulse Rate 59 L 67 71 Blood Pressure 147/72 H 138/78 142/79 H Pulse Oximetry 99 Oxygen Delivery 05/10/25 03:40 05/10/25 03:41 05/10/25 03:42 Temperature Pulse Rate 57 L 61 Blood Pressure 137/76 133/75 Pulse Oximetry 98 Oxygen Delivery 05/10/25 03:44 05/10/25 03:45 05/10/25 03:47 Temperature Pulse Rate 65 61 Blood Pressure 139/82 135/79 Pulse Oximetry 98 Oxygen Delivery 05/10/25 03:50 05/10/25 03:55 05/10/25 03:58 Temperature Pulse Rate 59 L 58 L Blood Pressure 138/78 136/67 Pulse Oximetry 100 100 Oxygen Delivery 05/10/25 04:00 05/10/25 04:01 05/10/25 04:05 Temperature Pulse Rate 55 L Blood Pressure 123/57 L Pulse Oximetry 100 99 Oxygen Delivery 05/10/25 04:10 05/10/25 04:15 05/10/25 04:16 Temperature Pulse Rate 62 Blood Pressure 126/67 Pulse Oximetry 97 98 Oxygen Delivery 05/10/25 04:20 05/10/25 04:25 05/10/25 04:30 Temperature Pulse Rate Blood Pressure Pulse Oximetry 98 98 98 Oxygen Delivery 05/10/25 04:31 05/10/25 04:35 05/10/25 04:40 Temperature Pulse Rate 59 L Blood Pressure 119/71 Pulse Oximetry 97 100 Oxygen Delivery 05/10/25 04:45 05/10/25 04:50 05/10/25 04:55 Temperature Pulse Rate 62 Blood Pressure 135/89 Pulse Oximetry 97 97 97 Oxygen Delivery 05/10/25 05:00 05/10/25 05:01 05/10/25 05:05 Temperature Pulse Rate 58 L Blood Pressure 138/92 H Pulse Oximetry 97 98 Oxygen Delivery 05/10/25 05:10 05/10/25 05:15 05/10/25 05:20 Temperature Pulse Rate Blood Pressure Pulse Oximetry 97 99 99 Oxygen Delivery 05/10/25 05:25 05/10/25 05:30 05/10/25 05:31 Temperature Pulse Rate 55 L Blood Pressure 128/69 Pulse Oximetry 98 98 Oxygen Delivery 05/10/25 05:35 05/10/25 05:40 05/10/25 05:45 Temperature Pulse Rate Blood Pressure Pulse Oximetry 97 96 97 Oxygen Delivery 05/10/25 05:46 05/10/25 05:50 05/10/25 05:55 Temperature Pulse Rate 53 L Blood Pressure 125/58 L Pulse Oximetry 97 98 Oxygen Delivery 05/10/25 06:00 05/10/25 06:01 05/10/25 06:05 Temperature Pulse Rate 55 L Blood Pressure 126/73 Pulse Oximetry 98 97 Oxygen Delivery 05/10/25 06:10 05/10/25 06:15 05/10/25 06:16 Temperature Pulse Rate 59 L Blood Pressure 137/86 Pulse Oximetry 100 99 Oxygen Delivery 05/10/25 06:20 05/10/25 06:25 05/10/25 06:30 Temperature Pulse Rate Blood Pressure Pulse Oximetry 99 99 100 Oxygen Delivery 05/10/25 06:31 05/10/25 06:35 05/10/25 06:40 Temperature Pulse Rate 61 Blood Pressure 139/86 Pulse Oximetry 100 98 Oxygen Delivery 05/10/25 06:45 05/10/25 06:46 05/10/25 06:50 Temperature Pulse Rate 55 L Blood Pressure 150/86 H Pulse Oximetry 99 99 Oxygen Delivery 05/10/25 06:55 05/10/25 07:00 05/10/25 07:01 Temperature Pulse Rate 58 L Blood Pressure 134/86 Pulse Oximetry 100 100 Oxygen Delivery Exam Const: General: cooperative, healthy appearing, comfortable and no acute distress Orientation/consciousness: patient oriented x3 Resp: Effort & Inspection: normal respiratory effort Cardio: Rate: regular rate GI: GI Palp: No abdominal tenderness : Other: FHT's: 120's/ mod nicola/ + accels/ no decels - cat 1 TOCO: ctxs q2-6min Cervix: 4/50/-3 Membranes: AROM, clear 0725 Presentation: cephalic Skin: General skin exam: normal color Neuro: General: patient oriented x3 Extrem: General: normal to inspection Psych: Appearance: grossly normal Affect: normal affect Attitude: cooperative H&P: Results Labs Labs: Short CBC 05/09/25 Range/Units 17:32 WBC 10.7 H (4.5-10.0) K/mm3 Hgb 11.6 L (12.0-15.0) g/dL Hct 34.5 L (37.0-47.0) % Plt Count 213 (150-375) k/mm3 BMP 05/09/25 17:32 Sodium 135 L Potassium 3.4 Chloride 109 H Carbon Dioxide 19 L BUN 5 L Creatinine 0.54 L Glucose 76 Calcium 8.8 Liver Function 05/09/25 Range/Units 17:32 Total Bilirubin 0.6 (0.2-1.3) mg/dL AST 30 (14-36) U/L ALT 15 (6-35) U/L Alkaline Phosphatase 135 H (38-126) U/L Albumin 3.7 (3.5-5.1) g/dL Assessment and Plan Assessment and plan (1) Pre-eclampsia: Code(s): O14.90 - Unspecified pre-eclampsia, unspecified trimester Status: Acute Plan - Admitted overnight for induction of labor; risks and benefits discussed - s/p cervidil overnight; removed early due to tachysystole - AROM, clear @ 0725 - Low dose pitocin per protocol - Continuous monitoring - GBS neg - Anesthesia consult PRN pain
--- NOTE | 2025-05-10 12:13 | S_PTH ---
PATIENT: Martha Duarte LOC: [facility] U#:[id number] AGE/SX: 29/F ROOM: 291 RE05/09/[address]: Jose J Combs MD : [id number] BED: 00 DIS: 05/12/2025 SPEC #: [id number] RECD: 05/10/25 13:48 STATUS: ASHER REQ #: [id number] [place]: 05/10/25 12:[address]: Karuna Shepard DEPT: [facility] Surgical RECD BY: Soni Nunes ENTERED: 05/10/25 13:49 SP TYPE: Surgical OTHR DR: BOSS DYER PHYSICIAN Tissues: A - Placenta Procedures: Hematoxylin and Eosin Stain Gross and Microscopic Level 5
[2025-05-10] MEDS: OXYTOCIN 30 UNITS/NS 500 ML 30 UNITS/500 ML BAG 125 UNITS IV CONT (12:36)
--- NOTE | 2025-05-10 12:41 | P.PCNOB_ITS ---
OB - Vaginal Delivery Note Procedure Delivery date: 05/10/25 Events: Preeclampsia w/o severe features (turned to pre-e w/ severe features) Induction method: Per Cervidil Protocol Delivery augmentation: Rupture of Membranes and Pitocin Delivery monitor: External FHT and External Uterine Route of delivery: Episiotomy description: None Laceration Description: Periurethral (central) and Perineal - 1st Degree Delivery repair: vicryl Specimen: Yes (placenta) Quantitative Blood Loss (ml): 350 Anesthesia type: Epidural Disposition: Floor Complications: No immediate complications Rough And Ready Baby Date of : 05/10/25 Time of : 12:08 Gestational Age by Date: 38 (.3) Infant gender: Female presentation: vertex Placenta delivery description: Expressed Cord Vessel Description: 3 Vessels score one minute: 9 score five minutes: 10 Narrative: Cora progressed to complete dilation with strong desire to push. She pushed for 3 contractions with good maternal effort. She delivered the head over intact perineum. She easily delivered the 's shoulders and body without complication. The infant was immediately placed skin to skin and had spontaneous cry. Delayed cord clamping was performed. The umbilical cord was then doubly clamped and cut by dad. A segment of cord was collected for cord gases. The remaining cord blood was collected for typing. With Pitocin running and gentle downward traction on the cord, the placenta delivered without complication. Bimanual massage was performed as a slight increase bleeding was noted an mild atony did resolve with bimanual massage. She was examined a end a periurethral and first-degree perineal laceration were identified. They were repaired in the normal fashion using 3-0 Vicryl and good hemostasis was noted. She had slight increase in bleeding once again and bimanual massage revealed atony with a small amount of clots in the uterus which were easily removed. With massage the uterus was then firm with minimal bleeding. Cytotec 800 mcg was placed rectally to help with further atony and good uterine tone with minima l bleeding was noted. Sponge, lap, instrument, and needle counts were correct at the end of the procedure. Mom and baby were left bonding in the birthing suite in stable condition. She did develop severe range blood pressures requiring labetalol IV to be given and was then subsequently started on magnesium sulfate for seizure prophylaxis.
[2025-05-10] MEDS: MAGNESIUM SULF 4 GM/WATER100ML 4 GM/100 ML BAG IVPB (14:06)
[2025-05-10] MEDS: MAGNESIUM SULF 20GM/WATER500ML 500 ML 50 MG IV CONT (14:43)
--- OUTSIDE RECORDS SUMMARY | 2025-05-10 15:21 | XMS_ITS | Clinical Summary ---
Author Organization [facility] Address [address] [place] [address] Care Team Providers Care Information Assurance Manager Name Role Phone Unknown, Notinfile Primary Care [...] Description 05/04/2025 11:45 AM CDT Office Visit [facility] at [address] [address] Elida Hartman, MYRNA Cellulitis of right hand (Primary Dx) 05/04/2025 Telephone [facility] Medical [facility] at [address] [address] Elida Hartman, MYRNA 04/03/2025 4:15 PM CDT Office Visit [facility] at [address] [address] Evy Cadet NP Strep throat (Primary Dx); COVID-19 from Last 3 Months Social History Tobacco Use Types Packs/Day Years Used Date Smoking Tobacco: Never Assessed Estimated Date of Delivery Comme nts Yes 05/21/2025 Sex and Gender Information Value Date Recorded Sex Assigned at Not on file Legal Sex Female 2:51 PM [employer] Gender Identity Not on file Sexual Orientation [...] CDT) Influenza A Ag, POC Negative Negative [facility] EDW Influenza B Ag, POC Negative Negative [facility] CC EDW COVID-19 Ag POC Positive(A) Presumptive Negative, Invalid [facility] CC EDW Nasal 04/03/2025 4:25 PM CDT us Evy Cadet NP POINT OF CARE TEST ORDERABLES Final Result [facility] CC EDW [facility] [address] * (ABNORMAL) POCT rapid strep A (04/03/2025 4:25 PM CDT) Rapid Strep A, POC Positive(A ) Negative Swab 04/03/2025 4:25 PM CDT us Evy Cadet NP POINT OF CARE TEST ORDERABLES Final Result from Last 3 Months Additional Health Concerns Infection Onset Date Last Indicated COVID: Recovered Comment:Added based on recent COVID infection. 04/13/2025 025 Insurance [facility] [employer] [facility] [employer] Care Teams Information Assurance Manager Relationship Specialty Start Date End Date Unknown, Notinfile PCP - General 11/26/24
--- OUTSIDE RECORDS SUMMARY | 2025-05-10 15:21 | XMS_ITS | Encounter Summary ---
Author Organization [facility] Address [facility] [place] [address] Care Team Providers Care Director Behavioral Health Name Role Phone Safia Plata Primary Care Provider + [phone] Encounter Details Date Type Department Care Team (Late st Contact Info) Description 07/29/2022 [employer] Message Enc [facility] Family & Internal Medicine [facility] [id number] [place] [id number] Safia Plata PA [address] [place] [address] Question regarding TSH W/REFLEX Social History Tobacco [...] Coronavirus/COVID-19? No / Unsure 07/22/2022 7:52 AM WAITER/WAITRESS HEAD documented as of this encounter Plan of Treatment Not on file documented as of this encounter Visit Diagnoses Not on filedocumented in this encounter Additional Health Concerns Assessment Noted Time PHQ-9 Depression Total Score: 0 03/05/20 1:57 PM CDT documented as of this encounter Care Teams Director Behavioral Health Relationship Specialty [place] [address] [place] [address] PCP - General PHYSICIAN KITCHEN SUPERVISOR 03/05/21 documented as of this encounter
--- OUTSIDE RECORDS SUMMARY | 2025-05-10 15:21 | XMS_ITS | Encounter Summary ---
Author Organization [facility] Address [facility] [place] [address] Care Team Providers Care Gaming Pit Boss Name Role Phone Safia Plata Primary Care Provider [phone] Encounter Details Date Type Department Care Team (Late st Contact Info) Description 07/09/2022 [employer] Message [employer] [facility] Health Information Services [address] [place] [address] [facility] Provider PT NAME CHANGE Social History Tobacco [...] documented as of this encounter Care Teams Gaming Pit Boss Relationship Specialty [place] [address] [place] [address] PCP - General PHYSICIAN CONTRACT ADMINISTRATION COORDINATOR 03/05/21 documented as of this encounter
--- OUTSIDE RECORDS SUMMARY | 2025-05-10 15:21 | XMS_ITS | Clinical Summary ---
Author Organization [facility] Address [address] [place] [address] Care Team Providers Care Mechanical Door Repairer Name Role Phone Safia Plata Primary Care Provider + [phone] Allergies No known active allergies Medications BUSPIRONE [...] Comments Blood Pressure 114/69 07/22/2022 7:57 AM CRAB BACKER Pulse 61 07/22/2022 7:57 AM CRAB BACKER Temperature 36.6 C (97.8 F) 07/22/2022 7:57 AM CRAB BACKER Respiratory Rate 18 07/22/2022 7:57 AM CRAB BACKER Oxygen Saturation 99% 07/22/2022 7:57 AM CRAB BACKER Inhaled Oxygen Concentration - - Weight 108.4 kg (239 lb) 07/22/2022 7:57 AM CRAB BACKER Height 170.2 cm (5' 7) 07/22/2022 7:57 AM CRAB BACKER Body Mass Index 37.43 07/22/2022 7:57 AM CRAB BACKER Plan of Treatment Health Maintenance Due Date [...] (QUEST ONLY) (11/13/2021 11:08 AM CDT) Comment: [employer] [facility] Comment: This order for age-based cervical cancer and STI screening follows ACOG guidelines(PB 168, 140, ZOW240). See individual assays for performing site location. CLINICAL INFORMATION: 7 or more years since last Pap [facility] Clinical Information: INFORMATION NOT PROVIDED [facility] [employer] [facility] Date of Last Pap INFORMATION NOT PROVIDED [facility] [employer] [facility] Previous Biopsy? INFORMATION NOT PROVIDED [facility] [employer] [facility] SOURCE (QST) Endocervix [facility] [employer] [facility] STATEMENT OF ADEQUACY: [facility] [employer] [facility] Comment: Satisfactory for evaluation. Endocervical/transformation zone component absent. Age and/or menstrual status not provided PAP INTERPRETATION/RESU LTS Negative for intraepithelial lesion or malignancy. [facility] [employer] [facility] COMMENT: This Pap test has been evaluated with computer assisted technology. [facility] [employer] [facility] PR MANAGER [facility] Comment: GXX, CT(ASCP) CT Screening Location: [place] [address] [place] [address] REVIEW PR MANAGER: [facility] Comment: SXW, CT(ASCP) CT Screening Location: [place] [address] [place] [address] COMMENT: [facility] [employer] [facility] Comment: EXPLANATORY NOTE: The Pap is a [...] Safia MACE PATHOLOGY/CYTOLOGY ORDERABLE S Final Result [facility] [employer] DANDY ORD[facility] [address] [place] [address] from Last 3 Months or Most Recently Relevant to Health Maintenance Insurance Care Teams Mechanical Door Repairer Relationship Specialty [place] [address] [facility] [place] [address] PCP - General PHYSICIAN ROLLER STAINER 03/05/21
--- OUTSIDE RECORDS SUMMARY | 2025-05-10 15:21 | XMS_ITS | Encounter Summary ---
Author Organization [facility] Address [facility] [place] [address] Care Team Providers Care Lighting Adviser Name Role Phone Safia Plata Primary Care Provider + [phone] Encounter Details Date Type Department Care Team (Late st Contact Info) Description 07/16/2021 Unbxd Message Enc [facility] Family & Internal Medicine [facility] [address] [place] [address] [facility] Provider Record request Social History Tobacco Use [...] documented as of this encounter Care Teams Lighting Adviser Relationship Specialty [place] [address] [place] [address] PCP - General PHYSICIAN TRAPEZE ARTIST 03/05/21 documented as of this encounter
--- OUTSIDE RECORDS SUMMARY | 2025-05-10 15:21 | XMS_ITS | Clinical Summary ---
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
--- NOTE | 2025-05-10 18:40 | OBPPTRN ---
Patient transferred to post room #291 via wheelchair. Support person present. Oriented to unit, room, information board, rooming in, admission packet and security measures. Patient verbalizes understanding.
[2025-05-10] MEDS: CEPHALEXIN 500 MG CAPSULE PO (20:59)
[2025-05-10] MEDS: IBUPROFEN 600 MG TABLET PO (22:40)
[2025-05-11] VITALS (8 sets, daily range): BP systolic 127–142; BP diastolic 74–96; PULSE 70–87; RESP 14–20; TEMP 36.4–36.8; O2SAT 97–100
[2025-05-11] MEDS: MAGNESIUM SULF 20GM/WATER500ML 500 ML 50 MG IV CONT ×2 (00:17→09:58)
[2025-05-11] MEDS: LACTATED RINGERS 1,000 ML 75 ML IV CONT ×2 (00:27→13:31)
[2025-05-11 04:39] LABS: Hematocrit 33.8 % (37.0-47.0); Hemoglobin 11.4 g/dL (12.0-15.0); Mean Corpuscular HGB Conc 33.7 g/dl (32-36); Mean Corpuscular Hemoglobin 33.5 pg (26-34); Mean Corpuscular Volume 99.4 fl (80-100); Platelet Count Result 202 k/mm3 (150-375); Red Blood Count 3.40 M/mm3 (4.2-5.4); White Blood Count 10.5 K/mm3 (4.5-10.0)
[2025-05-11 04:57] LABS: Alanine Aminotransferase 15 U/L (6-35); Albumin Level 3.1 g/dL (3.5-5.1); Alkaline Phosphatase 127 U/L (38-126); Anion Gap 6 mmol/L (4-12); Aspartate Amino Transferase 31 U/L (14-36); Bilirubin,Total 0.4 mg/dL (0.2-1.3); Blood Urea Nitrogen 2 mg/dL (7-17); Calcium 6.7 mg/dL (8.4-10.2); Carbon Dioxide 21 mmol/L (22-30); Chloride 108 mmol/L (98-107); Estimated CRCL calculation 190 ml/min; Estimated Glomerular Filt Rate > 60; Glucose 85 mg/dL (65-110); Potassium 3.3 mmol/L (3.4-5.0); Sodium 135 mmol/L (137-145); Total Protein 6.2 g/dL (6.3-8.2)
[2025-05-11] MEDS: CEPHALEXIN 500 MG CAPSULE PO ×2 (07:52→21:57)
[2025-05-11] MEDS: metFORMIN HCL XR 500 MG TAB.SR.24H PO (07:53)
[2025-05-11] MEDS: DOCUSATE SODIUM 100 MG CAPSULE PO ×2 (07:53→17:12)
[2025-05-11] MEDS: MULTIVIT/MIN/PREN/FOL AC/IRON TABLET 1 TAB PO (07:53)
--- NOTE | 2025-05-11 08:06 | P.PNOB_ITS ---
OB - PN: Subj Subjective Date/time seen: 05/11/25 08:07 Narrative: PPD#1 Martha reports doing ok today; the magnesium is making her feel not the greatest. 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 Her pain is controlled. She is tolerating regular diet, voiding, passing gas, and ambulating without issues. She is breast feeding. No symptoms of PIH. OB - PN: Obj Data Labs 05/11/25 04:06 05/11/25 04:06 Labs: Laboratory Results - last 24 hr 05/11/25 04:06 WBC 10.5 H RBC 3.40 L Hgb 11.4 L Hct 33.8 L MCV 99.4 MCH 33.5 MCHC 33.7 RDW 14.3 Plt Count 202 MPV 10.6 H Sodium 135 L Potassium 3.3 L Chloride 108 H Carbon Dioxide 21 L Anion Gap 6 BUN 2 L Creatinine 0.46 L Estim Creat Clear Calc 190 Estimated GFR > 60 Glucose 85 Calcium 6.7 L Total Bilirubin 0.4 AST 31 ALT 15 Alkaline Phosphatase 127 H Total Protein 6.2 L Albumin 3.1 L OB - PN A/P Assessment and Plan (1) Normal vaginal delivery of second : Code(s): O80 - Encounter for full-term uncomplicated delivery Status: Acute (2) Pre-eclampsia, severe: Code(s): O14.10 - Severe pre-eclampsia, unspecified trimester Status: Acute Plan day: 1 Plan: routine care Comments: - PO pain meds - Regular diet - Ambulation and hydration encouraged - Continue putting baby to breast q2-3hr - continue magnesium for 24 hours PP (stop at approximately 1700 this PM). continue nifedipine 30mg qd; will monitor BPs if remaining in high moderate range, will increase to 30mg BID Time Spent With Patient Time: Total time spent is greater than 50% in coordination of care (as documented) at patient's floor/unit and/or counseling patient: Review of Systems 2 Constitutional: Constitutional: Denies chills, Denies fever(s) and Denies headache(s) Eyes: Eyes: Denies change in vision ENT: Denies dizziness and Denies headache(s) Cardiovascular: Cardiovascular: Denies chest pain, Denies palpitations and Denies dyspnea Respiratory: Respiratory: Denies cough and Denies dyspnea Gastrointestinal: Gastrointestinal: Denies nausea and Denies vomiting Neurologic: Denies dizziness and Denies headache(s) Endocrine: Endocrine: Denies palpitations Exam 2 Const: General: cooperative, comfortable, no acute distress and obese N utritional Appearance: obese Orientation/consciousness: patient oriented x3 Resp: Effort & Inspection: normal respiratory effort Auscultation: clear to auscultation bilaterally Cardio: Rate: regular rate GI: Inspection: non-distended GI Palp: No abdominal tenderness and Yes Soft to palpation Auscultation: normal bowel sounds : Other: fundus firm Skin: General skin exam: normal color Neuro: General: patient oriented x3 Extrem: General: normal to inspection Psych: Appearance: grossly normal Affect: normal affect Attitude: c ooperative
[2025-05-11] MEDS: ACETAMINOPHEN 325 MG TABLET 650 MG PO ×2 (09:57→17:15)
--- NOTE | 2025-05-11 12:49 | PM.OBDSVD ---
DS: Admitting Diagnosis Discharge Date 05/12/25 <Jose J Combs MD - Last Filed: 05/12/25 09:40> Admitting Diagnosis pre-eclampsia w/o severe features <Karuna Shepard MD - Last Filed: 05/13/25 15:53> pre-eclampsia w/o severe features <Jose J Combs MD - Last Filed: 05/12/25 09:40> DS: Discharge Diagnosis Discharge Diagnosis (1) Normal vaginal delivery of second : Code(s): O80 - Encounter for full-term uncomplicated delivery <Karuna Shepard MD - Last Filed: 05/13/25 15:53> Status: Acute <Karuna Shepard MD - Last Filed: 05/13/25 15:53> (2) Pre-eclampsia, severe: Qualifiers: Trimester: third trimester Qualified Code(s): O14.13 - Severe pre-eclampsia, third trimester <Karuna Shepard MD - Last Filed: 05/13/25 15:53> Code(s): O14.10 - Severe pre-eclampsia, unspecified trimester <Karuna Shepard MD - Last Filed: 05/13/25 15:53> Status: Acute <Karuna Shepard MD - Last Filed: 05/13/25 15:53> OB - DS: Summary OB Procedures : NST, PIH Mgmt and Ultrasound <Karuna Shepard MD - Last Filed: 05/13/25 15:53> OB Procedures Intrapartum: Spontaneous Vag Delivery <Karuna Shepard MD - Last Filed: 05/13/25 15:53> OB Procedures: : None <Karuna Shepard MD - Last Filed: 05/13/25 15:53> Peripartum Data Infant Delivery Method: Natural Vaginal <Karuna Shepard MD - Last Filed: 05/13/25 15:53> Laceration Description: Periurethral (central) and Perineal - 1st Degree <Karuna Shepard MD - Last Filed: 05/13/25 15:53> Episiotomy description: None <Karuna Shepard MD - Last Filed: 05/13/25 15:53> complications: none <Karuna Shepard MD - Last Filed: 05/13/25 15:53> 1: Gender: Female <Karuna Shepard MD - Last Filed: 05/13/25 15:53> Disposition of : home <Karuna Shepard MD - Last Filed: 05/13/25 15:53> Status at Discharge Functional status at discharge: independent ambulation <Karuna Shepard MD - Last Filed: 05/13/25 15:53> Overall status at discharge: patient is back to baseline <Karuna Shepard MD - Last Filed: 05/13/25 15:53> Time Spent with Patient Time attestation: Total time spent providing and/or coordinating discharge services: <Karuna Shepard MD - Last Filed: 05/13/25 15:53> Exam Const: General: cooperative, comfortable, no acute distress and obese <Karuna Shepard MD - Last Filed: 05/13/25 15:53> Nutritional Appearance: obese <Karuna Shepard MD - Last Filed: 05/13/25 15:53> Orientation/consciousness: patient oriented x3 <Karuna Shepard MD - Last Filed: 05/13/25 15:53> Resp: Effort & Inspection: normal respiratory effort <Karuna Shepard MD - Last Filed: 05/13/25 15:53> Auscultation: clear to auscultation bilaterally <Karuna Shepard MD - Last Filed: 05/13/25 15:53> Cardio: Rate: regular rate <Karuna Shepard MD - Last Filed: 05/13/25 15:53> GI: Inspection: non-distended <Karuna Shepard MD - Last Filed: 05/13/25 15:53> GI Palp: No abdominal tenderness and Yes Soft to palpation <Karuna Shepard MD - Last Filed: 05/13/25 15:53> Auscultation: normal bowel sounds <Karuna Shepard MD - Last Filed: 05/13/25 15:53> : Other: fundus firm <Karuna Shepard MD - Last Filed: 05/13/25 15:53> Skin: General skin exam: normal color <Karuna Shepard MD - Last Filed: 05/13/25 15:53> Neuro: General: patient oriented x3 <Karuna Shepard MD - Last Filed: 05/13/25 15:53> Extrem: General: normal to inspection <Karuna Shepard MD - Last Filed: 05/13/25 15:53> Psych: Appearance: grossly normal <Karuna Shepard MD - Last Filed: 05/13/25 15:53> Affect: normal affect <Karuna Shepard MD - Last Filed: 05/13/25 15:53> Attitude: cooperative <Karuna Shepard MD - Last Filed: 05/13/25 15:53> DS: Data Data Completed and Pending Completed studies during hospitalization: Pending at discharge 05/10/25 12:13 Surgical [PTH] Routine <Karuna Shepard MD - Last Filed: 05/13/25 15:53> Labs on day of discharge: Labs from last 24 hours 05/11/25 04:06 WBC 10.5 H RBC 3.40 L Hgb 11.4 L Hct 33.8 L MCV 99.4 MCH 33.5 MCHC 33.7 RDW 14.3 Plt Count 202 MPV 10.6 H Sodium 135 L Potassium 3.3 L Chloride 108 H Carbon Dioxide 21 L Anion Gap 6 BUN 2 L Creatinine 0.46 L Estim Creat Clear Calc 190 Estimated GFR > 60 Glucose 85 Calcium 6.7 L Total Bilirubin 0.4 AST 31 ALT 15 Alkaline Phosphatase 127 H Total Protein 6.2 L Albumin 3.1 L <Karuna Shepard MD - Last Filed: 05/13/25 15:53> Discharge Plan Discharge Attending physician on discharge: Karuna Shepard <Karuna Shepard MD - Last Filed: 05/13/25 15:53> Karuna Shepard <Jose J Combs MD - Last Filed: 05/12/25 09:40> Discharging Clinician: Jose J Combs <Karuna Shepard MD - Last Filed: 05/13/25 15:53> Jose J Combs <Jose J Combs MD - Last Filed: 05/12/25 09:40> Patient Disposition: Home <Karuna Shepard MD - Last Filed: 05/13/25 15:53> Activity: may shower and pelvic rest <Karuna Shepard MD - Last Filed: 05/13/25 15:53> may shower and pelvic rest <Jose J Combs MD - Last Filed: 05/12/25 09:40> Diet: regular <Karuna Shepard MD - Last Filed: 05/13/25 15:53> regular <Jose J Combs MD - Last Filed: 05/12/25 09:40> Discharge Instructions: Call or return if temperature above 100.4? F, increased abdominal pain, increased vaginal bleeding or any new problems. Education: Mom and Baby Guide Given to: Mother Follow-Up: Call your delivering provider's office for an appointment to be seen in: 1 Week Mom and baby should come to the [facility] for the follow-up appointment. Appointment Date/Time: May 14, 2025 at 9:00 am What to expect at your follow-up visit: Blood Pressure Check & Physical Assessment Call [phone] if you are unable to keep your appointment time. BREAST CARE: * Wear a snug supportive bra. * For engorgement discomfort: Breast Feeding: * Apply warm moist washcloths * Express milk as needed to relieve engorgement * Wear loose clothing Bottle Feeding: * May apply ice packs * For sore nipples: * Identify correct latch-on * Apply warm moist washcloths before and after nursing * Air dry nipples after nursing * May apply Lansinoh cream to nipples EPISIOTOMY/PERINEAL CARE: * Until bleeding stops, use your tatiana bottle after urinating * Change your pad frequently throughout the day * You may take sitz baths several times a day (fill your bathtub with warm water and soak for 20 minutes.) Do NOT bathe in the water * No tub baths until seen by your physician - You may shower ACTIVITY: * Rest as much as possible. * Do not exercise or lift anything heavier than your baby (such as laundry or other children.) * Avoid stairs or driving as much as possible. * Do not put anything into the vagina. No douching, tampons, or sexual activity until seen by physician. NOTIFY PHYSICIAN IF YOU HAVE ANY QUESTIONS OR IF ANY OF THE FOLLOWING SYMPTOMS OCCUR: * If your episiotomy/perineum becomes red, swollen, or more painful than what you have experienced in the hospital. * If your vaginal bleeding becomes foul smelling. * If your vaginal bleeding becomes more heavy than a period or if your bleeding changes from pink to bright red. However, you may pass an occasional walnut-sized clot once or twice for the first week . * If you experience a sharp, shooting pain in you calves. * If you discover a hard, reddened area on your breast or if you experience flu-like symptoms. DIET: * Eat regular, well-balanced meals. * Drink plenty of fluids daily. If , drink to thirst. <Karuna Shepard MD - Last Filed: 05/13/25 15:53> Patient Instructions: Your Baby (DC), Expression, Collection and Storage of Breast Milk (DC) <Karuna Shepard MD - Last Filed: 05/13/25 15:53> Patient Language: Belgian <Karuna Shepard MD - Last Filed: 05/13/25 15:53> Stand Alone Forms: General Discharge Information <Karuna Shepard MD - Last Filed: 05/13/25 15:53> Follow-up/Referrals: Karuna Sheaprd MD [Physician, [facility]] - 1 Week Referral Note: BP check <Karuna Shepard MD - Last Filed: 05/13/25 15:53> Discharge Medications: New acetaminophen 325 mg Tablet 650 mg PO Q6H PRN (Reason: Mild Pain (1-3) Or Headache) Qty: 60 0RF docusate sodium 100 mg Capsule 100 mg PO BID PRN (Reason: Constipation) Qty: 90 0RF ibuprofen 600 mg Tablet 600 mg PO Q6H PRN (Reason: Cramping) Qty: 40 0RF nifedipine [Procardia XL] 30 mg tablet extended release 24hr 30 mg PO BID Qty: 60 0RF lorazepam [Ativan] 0.5 mg tablet 0.5 mg PO BID PRN (Reason: anxiety) Qty: 10 0RF Continued aspirin 81 mg tablet 81 mg PO DAILY metformin 500 mg tablet extended release 24 hr 500 mg PO DAILY Qty: 90 3RF ferrous sulfate 325 mg (65 mg iron) tablet,delayed release (DR/EC) 325 mg PO DAILY valacyclovir 500 mg tablet 500 mg PO BID 35 Days Qty: 70 0RF ergocalciferol (vitamin D2) 1,250 mcg (50,000 unit) capsule 1,250 mcg PO WEEKLY Qty: 30 0RF cephalexin 500 mg capsule 500 mg PO Q12H PNV no.95-ferrous fumarate-FA [] 28 mg iron- 800 mcg tablet 1 tablet PO DAILY <Karuna Shepard MD - Last Filed: 05/13/25 15:53> Date of admission: 05/09/25 17:07 <Karuna Shepard MD - Last Filed: 05/13/25 15:53> Primary Care Provider: PHYSICIAN,LOOM CHANGEOVER OPERATOR <Karuna Shepard MD - Last Filed: 05/13/25 15:53> Admitting Provider: Karuna Shepard <Karuna Shepard MD - Last Filed: 05/13/25 15:53> Attending physician on admission: Karuna Shepard <Karuna Shepard MD - Last Filed: 05/13/25 15:53> Condition: Stable <Karuna Shepard MD - Last Filed: 05/13/25 15:53>
--- NOTE | 2025-05-11 14:29 | WPDANLDPN2 ---
Anes-Prog Note L&D Date/Time: 05/11/25 14:29 Comfortable throughout: labor and delivery Neuraxial method: epidural Epidural/Spinal procedure site: clean & non-tender Neuro status: Neuro function grossly intact. Cardiovascular status: normal Respiratory status: normal Airway patency: baseline Mental status: baseline Post-Op hydration status: normal Vital Signs: Last Vital Signs Temp 98.2 F 05/11/25 12:16 Pulse 87 05/11/25 12:16 Resp 14 05/11/25 12:16 BP 142/95 H 05/11/25 12:16 Pulse Ox 99 05/11/25 12:16 O2 Del Method Room Air 05/11/25 04:00 Pain score (VAS): 0/10 I/O: Intake & Output 05/10/25 05/11/25 05/11/25 23:59 07:59 15:59 Intake Total 500 2218.3 1664.2 Output Total 3800 1900 Balance -3300 318.3 1664.2 Post-procedural complaints: none Patient feedback: Patient satisfied with anesthetic care.
[2025-05-11] MEDS: LORazepam (*CRX) 0.5 MG TABLET PO ×2 (14:57→21:57)
--- NOTE | 2025-05-11 15:07 | PC.NURSE ---
1445- pt called out, crying very anxious asking for something to calm her down, very worried about BP being elevated, scared that every sx she is having is related to her BP going up. This RN offered reassurance and called Dr. Combs, order received for Ativan 0.5mg po PRN, give one tab now. Pt aware and medication given by this RN.
[2025-05-11] MEDS: IBUPROFEN 600 MG TABLET PO (17:12)
--- NOTE | 2025-05-11 17:32 | PC.NURSE ---
1410 CLC checked in with mother to assess any needs to , she was currently sleeping and father of the baby was holding , told him I would return in a few hours. 1725 Consulted with patient to assess needs related to . Discussed with mother her successes, concerns and any questions she has, she had been on Magnesium and had received formula bottles while she rested. Per mother she did breastfeed her first baby successfully and plans on this as well. We reviewed working with the infant, supporting breast, protecting her nipples with an optimal deep latch, good positioning, and good hand washing. Encouraged understanding the benefits of skin to skin, responding to feeding cues, frequencies of feeding 8-12 times in 24 hours (approximately 2-3 hours), duration of feedings, milk production, intake/output feeding sheet and signs of adequate intake encouraging swallowing at the breast. Reviewed positioning and alignment, supporting breast, off-centered (asymmetrical latch) and leading with the chin with big, open, wide gape. latched optimally to the [right] breast in [football] position. Education given to the mother of how to visualize the suckling (with good rocking jaw motion) swallows (dropping of the lower jaw) and how to listen for drinking at the breast (the ka sound). The was [able] to maintain latch without discomfort to mother. Nipple care reviewed with optimal latch, good positioning and using clean hands when touching her breast. Resources used to facilitate learning were used from the [visual handouts/ tool/mom and baby guide]. Mother voiced understanding of the education shared, to call for assistance if the infant does not latch or if there is discomfort with . Reported to the Primary RN.
[2025-05-12 03:55] VITALS: BP 136/81; PULSE 76
[2025-05-12 08:00] VITALS: BP 138/88; PULSE 68; RESP 16; TEMP 36.5; O2SAT 97
[2025-05-12] MEDS: metFORMIN HCL XR 500 MG TAB.SR.24H PO (08:05)
[2025-05-12] MEDS: IBUPROFEN 600 MG TABLET PO (08:05)
[2025-05-12] MEDS: DOCUSATE SODIUM 100 MG CAPSULE PO (08:05)
[2025-05-12] MEDS: CEPHALEXIN 500 MG CAPSULE PO (08:06)
[2025-05-12] MEDS: MULTIVIT/MIN/PREN/FOL AC/IRON TABLET 1 TAB PO (08:06)
[2025-05-12] MEDS: LANOLIN (LANSINOH) 7.5 GM CREAM 1 APPLIC TOPICAL (08:07)
--- NOTE | 2025-05-12 09:30 | P.PNOB_ITS ---
OB - PN: Subj Subjective Date/time seen: 05/12/25 09:30 Narrative: Pain OK. No headache or abdominal pain. Anxiety last evening responded well to a low dose of Ativan po. She does not feel sad or anxious. She has no suicidal or homicidal ideation. Magnesium sulfate was stopped last evening. She would like to go home. OB - PN: Obj Data Labs 05/11/25 04:06 05/11/25 04:06 OB - PN A/P Plan Comments: A: PPD#2, doing well. Preeclampsia, resolving. Anxiety. P: Home to f/u bp check with Dr. Shepard. Precautions / instructions reviewed in detail. She'd like to have a little Ativan available for breakthrough anxiety. Review of Systems 2 Constitutional: Comments: BP 130-140/80-90 Urine output >9000 mL since last evening Exam 2 Psych: Other: AVSS ABD soft, nontender, fundus firm EXT nontender
[2025-05-14 09:31] VITALS: BP 133/90; PULSE 75; RESP 18; TEMP 36.8; O2SAT 99
== END 2025-05-12 11:40 | disposition home or self-care (01) | DRG 806 ==
LOC: ANHOB2 05-12 09:48 → ANHLDR 05-15 13:50 → ANHOB2 05-15 13:50
PROVIDERS: Admitting Provider Obstetrics & Gynecology; Visit Provider Obstetrics & Gynecology
DX: O14.14 Severe pre-eclampsia complicating childbirth (principal); O98.32 Other infections with a predominantly sexual mode of transmission complicating childbirth; Z37.0 Single live birth; Z3A.38 38 weeks gestation of pregnancy; A60.09 Herpesviral infection of other urogenital tract; O71.82 Other specified trauma to perineum and vulva; O70.0 First degree perineal laceration during delivery
CPT/HCPCS: 36415; 80053; 85025; 85027; 86593; 86703; 86762; 86850; 86900; 86901; 88307; A9270; G0432; J2590; J2795; J3010; J3475; J7120